=== PATIENT | female | born 1955 | race Caucasian/White ===

== ENCOUNTER 2022-05-10 20:10 | Inpatient (IN) | payer MEDICARE, SELFPAY ==
--- NOTE | ~2022-05-10 | XR_ITS ---
EXAM: XR hand RT min 3V DATE: 05/10/2022 21:08 HISTORY: Cat bite. Pain and swelling to dorsal right hand . COMPARISON: None available. FINDINGS: Normal mineralization. No fracture or dislocation. No lytic or blastic lesion. Polyarticul ar erosive osteoarthritis. No erosion or periosteal change. Soft tissue swelling of the hand. No radi opaque foreign body. IMPRESSION: No acute osseous finding in the right hand. Reviewed, dictated and finalized at location [facility]
[2022-05-10 20:12] VITALS: BP 136/82; PULSE 102; RESP 20; TEMP 37.4; O2SAT 98
[2022-05-10 20:32] LABS: Basophils Percent Auto 0.1 % (0.2-1.2); Eosinophils Absolute Auto 0.1 K/mm3 (0-0.3); Eosinophils Percent Auto 1.6 % (0-4.4); Hematocrit 40.2 % (37.0-47.0); Hemoglobin 13.6 g/dL (12.0-15.0); Immature Granulocyte Absolute 0.01 K/mm3 (0.00-0.031); Immature Granulocyte Percent A 0.1 % (0-0.5); Lymphocytes Percent Auto 11.8 % (18.3-44.2); Mean Corpuscular HGB Conc 33.8 g/dl (32-36); Mean Corpuscular Hemoglobin 30.1 pg (26-34); Mean Corpuscular Volume 88.9 fl (80-100); Mean Platelet Volume 9.8 fl (7.4-10.4); Monocytes Absolute Auto 0.6 K/mm3 (0.1-0.6); Monocytes Percent Auto 8.1 % (2.6-8.5); Neutrophils Absolute Auto 5.3 K/mm3 (1.3-6.7); Neutrophils Percent Auto 78.3 % (45.5-73.1); Platelet Count Result 178 k/mm3 (150-375); Red Blood Count 4.52 M/mm3 (4.2-5.4); Red Cell Distribution Width 14.4 % (11.5-14.5); White Blood Count 6.8 K/mm3 (4.5-10.0)
[2022-05-10 20:42] LABS: Alanine Aminotransferase 22 U/L (6-35); Albumin Level 4.4 g/dL (3.5-5.1); Alkaline Phosphatase 78 U/L (38-126); Anion Gap 6 mmol/L (8-16); Aspartate Amino Transferase 26 U/L (14-36); Bilirubin,Total 0.5 mg/dL (0.2-1.3); Blood Urea Nitrogen 15 mg/dL (7-17); Calcium 8.8 mg/dL (8.4-10.2); Carbon Dioxide 28 mmol/L (22-30); Chloride 104 mmol/L (98-107); Estimated CRCL calculation 76 ml/min; Estimated Glomerular Filt Rate > 60; Glucose 129 mg/dL (65-110); Potassium 4.1 mmol/L (3.4-5.0); Sodium 138 mmol/L (137-145)
[2022-05-10 22:29] LABS: CRP 3.5 mg/dL (<1.0)
--- NOTE | 2022-05-10 22:35 | ED.ANIMALBIT ---
HPI - Animal Bite General Chief Complaint: Animal Bite <ROGERS Dooley Last Filed: 05/10/22 23:59> Stated Complaint: hand swelling, cat bite <ROGERS Dooley Last Filed: 05/10/22 23:59> Time Seen by Provider: 05/10/22 21:45 <ROGERS Dooley Last Filed: 05/10/22 23:59> Source: patient <ROGERS Dooley Last Filed: 05/10/22 23:59> Mode of arrival: ambulatory <ROGERS Dooley Last Filed: 05/10/22 23:59> Limitations: no limitations <ROGERS Dooley Last Filed: 05/10/22 23:59> History of Present Illness HPI narrative: Patient is a 67-year-old female who presents the ED with report of a cat bite to her right hand. Patient reports she was bit by a friend's cat while trying to cage it yesterday morning. She sustained several puncture wounds to the dorsum of her right hand, no significant wounds to her fingers. The cat was not up to date on vaccines, but was not showing any signs of abnormal behavior. She states it just became scared when they were trying to cage it. She was seen in urgent care yesterday afternoon and had her tetanus status updated, started on Augmentin and mupirocin. Patient has had 3 doses of the Augmentin so far. She reports today she developed worsening swelling, redness, warmth to the dorsum of her right hand, beginning to extend down her right forearm. She denies any fever, nausea, vomiting, purulent drainage. Patient does not want the rabies vaccine. <ROGERS Dooley Last Filed: 05/10/22 23:59> Related Data Home Medications: Home Medications Medication Instructions Recorded Confirmed No Home Medications 05/11/22 05/11/22 <ROGERS Dooley Last Filed: 05/10/22 23:59> Allergies/Adverse Reactions: Allergies Allergy/AdvReac Type Severity Reaction Status Date / Time No Known Allergies Allergy Unverified 06/20/18 08:29 <Sunshine Sumner PA-C - Last Filed: 05/10/22 23:59> Review of Systems Review of Systems: CONSTITUTIONAL: Denies fever, chills, or sweats. CARDIOVASCULAR: Denies chest pain. RESPIRATORY: Denies dyspnea. GASTROINTESTINAL: Denies abdominal pain, nausea, vomiting. SKIN: See HPI. MUSCULOSKELETAL: See HPI. NEUROLOGIC: Denies tingling, numbness, or weakness. <Sunshine Sumner PA-C - Last Filed: 05/10/22 23:59> All systems reviewed & are unremarkable except as noted in HPI and below <Sunshine Sumner PA-C - Last Filed: 05/10/22 23:59> PMFSH Past Medical History Medical History: Medical History (Updated 05/10/22 @ 22:43 by Sunshine Sumner PA-C) No pertinent past medical history <Sunshine Sumner PA-C - Last Filed: 05/10/22 23:59> Surgical History Surgical History: Surgical History (Updated 05/10/22 @ 22:38 by Sunshine Sumner PA-C) No pertinent past surgical history <Sunshine Sumner PA-C - Last Filed: 05/10/22 23:59> Social History Social History: Social History (Updated 05/10/22 @ 22:38 by Sunshine Sumner PA-C) Smoking status: Never smoker Second hand tobacco smoke exposure: No Alcohol intake: never Substance use: never Substance use type: does not use Lack of Transportation: No Lack of Food: Never True Current Housing: I Have Housing Concerned About Future Housing: No Difficulty Paying Gas/Electric Bills: No Difficulty Paying for Meds: No Currently Unemployed: No Education: Trade/Vocational Certificate Difficulty w/ Childcare or Family Care: No Spiritual care concerns: No <Sunshine Sumner PA-C - Last Filed: 05/10/22 23:59> Exam Narrative: GENERAL: Well appearing, well-nourished, non-toxic, in no acute distress. HEAD: Normocephalic, atraumatic. NECK: Supple. No adenopathy, no masses. RESPIRATORY: Airway patent, respirations nonlabored. Clear to auscultation bilaterally, no rales, rhonchi, wheezing. CARDIOVASCULAR: Reg
[2022-05-10 22:45] LABS: Erythrocyte Sedimentation Rate 13 mm/hr (0-20)
[2022-05-10] MEDS: AMPICILLIN SULB 3 GM/NS 100 ML 3 GM/100 ML VIAL IVPB (23:07)
[2022-05-10 23:23] LABS: Lactic Acid Reflex 0.7 mmol/L (0.7-2.0)
--- NOTE | 2022-05-10 23:29 | PM.IMHP ---
H&P: HPI History of Present Illness Date/Time: 05/10/22 23:29 Chief Complaint: 67 years old female presented to the hospital with right hand swelling started after cat bite yesterday patient was trying to cage her friend Cat when the cat bit her patient start having pain and swelling of the right hand worsening she went to Urgent Care received tetanus shot patient was discharged on antibiotics Augmentin patient continued to have worsening pain and swelling of the right hand came to the ER today has tachycardia 102 patient will be admitted to the hospital for further evaluation and treatment of cellulitis Review of Systems Review of Systems: 12 system review was negative except above PMFSH Past Medical History Medical History (Updated 05/10/22 @ 22:43 by Sunshine Sumner PA-C) No pertinent past medical history Surgical History Surgical History (Updated 05/10/22 @ 22:38 by Sunshine Sumner PA-C) No pertinent past surgical history Social History Social History (Updated 05/10/22 @ 22:38 by Sunshine Sumner PA-C) Smoking status: Never smoker Meds Home Medications and Allergies Allergies Allergy/AdvReac Type Severity Reaction Status Date / Time No Known Allergies Allergy Unverified 06/20/18 08:29 Vital Signs Vital Signs - 24 hr 05/10/22 20:12 Temperature 99.3 F Pulse Rate 102 H Respiratory Rate 20 Blood Pressure 136/82 Pulse Oximetry 98 Oxygen Delivery Room Air Exam Narrative: GENERAL: Well appearing, well-nourished, non-toxic, in no acute distress. HEAD: Normocephalic, atraumatic. NECK: Supple. No adenopathy, no masses. RESPIRATORY: Airway patent, respirations nonlabored. Clear to auscultation bilaterally, no rales, rhonchi, wheezing. CARDIOVASCULAR: Regular rate and rhythm without murmurs, rubs, or gallops. Peripheral pulses 2+ and equal bilaterally. ABDOMINAL: Soft, nontender, nondistended, no hepatosplenomegaly. Normoactive BS. MUSCULOSKELETAL: Moves all extremities. Strength/ROM intact without gross deformities or TTP. No edema. No calf tenderness. No chest wall tenderness palpation. SKIN: Right hand positive swelling and redness no evidence of abscess. NEURO: A&O X3. Speech clear. Cranial nerves II-XII grossly intact. Steady gait. No ataxic movements. PSYCHIATRIC: Appropriate mood and affect. Normal interaction. H&P: Results Labs Labs: Short CBC 05/10/22 Range/Units 20:25 WBC 6.8 (4.5-10.0) K/mm3 Hgb 13.6 (12.0-15.0) g/dL Hct 40.2 (37.0-47.0) % Plt Count 178 (150-375) k/mm3 BMP 05/10/22 20:25 Sodium 138 Potassium 4.1 Chloride 104 Carbon Dioxide 28 BUN 15 Creatinine 0.50 L Glucose 129 H Calcium 8.8 Liver Function 05/10/22 Range/Units 20:25 Total Bilirubin 0.5 (0.2-1.3) mg/dL AST 26 (14-36) U/L ALT 22 (6-35) U/L Alkaline Phosphatase 78 (38-126) U/L Albumin 4.4 (3.5-5.1) g/dL Assessment and Plan Assessment and plan (1) Cat bite of right hand with infection: Qualifiers: Encounter type: initial encounter Qualified Code(s): S61.451A - Open bite of right hand, initial encounter; L08.9 - Local infection of the skin and subcutaneous tissue, unspecified; W55.01XA - Bitten by cat, initial encounter Code(s): S61.451A - Open bite of right hand, initial encounter; L08.9 - Local infection of the skin and subcutaneous tissue, unspecified; W55.01XA - Bitten by cat, initial encounter Status: Acute Assessment and Plan: Failed outpatient therapy Will give IV Unasyn Follow culture results Added doxycycline Keep arm elevated Pain control
[2022-05-10 23:50] LABS: Influenza A QL RT-PCR Negative (Negative); Influenza B QL RT-PCR Negative (Negative); SARS-CoV-2 RNA PCR Negative
[2022-05-10] MEDS: DOXYCYCLINE 100 MG/NS 100 ML 100 MG/100 ML BAG IVPB (23:56)
[2022-05-11 00:04] VITALS: BP 130/69; PULSE 90; RESP 18; TEMP 36.9; O2SAT 99
[2022-05-11 00:52] VITALS: BMI 28.2
[2022-05-11 01:00] VITALS: BP 163/85; PULSE 88; RESP 16; TEMP 36.6; O2SAT 98
--- NOTE | 2022-05-11 02:51 | ADMGEN ---
This patient, Madelyn Campo, was admitted to 3 [facility] Surg Room 327-01. Patient/family oriented to hospital policies and general routines including ID bracelet, bed and alarms, visiting hours, pain management, procedures, bathroom and other care routines, personal items, smoking policy, room service/diet, and visiting hours. Information on how to activate the Rapid Response Team has been discussed. Patient/Family are encouraged to report perceived risks to care and to ask questions if they do not understand what they are told or what they should do.
[2022-05-11] MEDS: AMPICILLIN SULB 3 GM/NS 100 ML 3 GM/100 ML VIAL IVPB ×3 (05:19→18:17)
[2022-05-11 06:00] VITALS: BP 111/47; PULSE 78; RESP 16; TEMP 36.4; O2SAT 100
[2022-05-11 06:43] LABS: Basophils Percent Auto 0.7 % (0.2-1.2); Eosinophils Absolute Auto 0.2 K/mm3 (0-0.3); Eosinophils Percent Auto 5.3 % (0-4.4); Hematocrit 37.5 % (37.0-47.0); Hemoglobin 12.5 g/dL (12.0-15.0); Immature Granulocyte Absolute 0.02 K/mm3 (0.00-0.031); Immature Granulocyte Percent A 0.5 % (0-0.5); Lymphocytes Absolute Auto 0.85 K/mm3 (0.9-3.2); Lymphocytes Percent Auto 19.5 % (18.3-44.2); Mean Corpuscular HGB Conc 33.3 g/dl (32-36); Mean Corpuscular Hemoglobin 29.6 pg (26-34); Mean Corpuscular Volume 88.7 fl (80-100); Mean Platelet Volume 9.9 fl (7.4-10.4); Monocytes Absolute Auto 0.5 K/mm3 (0.1-0.6); Monocytes Percent Auto 10.5 % (2.6-8.5); Neutrophils Absolute Auto 2.8 K/mm3 (1.3-6.7); Neutrophils Percent Auto 63.5 % (45.5-73.1); Platelet Count Result 169 k/mm3 (150-375); Red Blood Count 4.23 M/mm3 (4.2-5.4); Red Cell Distribution Width 14.4 % (11.5-14.5); White Blood Count 4.4 K/mm3 (4.5-10.0)
[2022-05-11 06:58] LABS: Alanine Aminotransferase 19 U/L (6-35); Albumin Level 3.8 g/dL (3.5-5.1); Alkaline Phosphatase 73 U/L (38-126); Anion Gap 5 mmol/L (8-16); Aspartate Amino Transferase 21 U/L (14-36); Bilirubin,Total 0.7 mg/dL (0.2-1.3); Blood Urea Nitrogen 12 mg/dL (7-17); Calcium 8.4 mg/dL (8.4-10.2); Carbon Dioxide 27 mmol/L (22-30); Chloride 104 mmol/L (98-107); Estimated CRCL calculation 88 ml/min; Estimated Glomerular Filt Rate > 60; Glucose 103 mg/dL (65-110); Sodium 136 mmol/L (137-145)
[2022-05-11] MEDS: FAMOTIDINE 20 MG TABLET PO ×2 (08:12→20:54)
[2022-05-11] MEDS: ENOXAPARIN 40 MG/0.4 ML SYRINGE SUB-Q (08:15)
--- NOTE | 2022-05-11 08:40 | PM.IMPN ---
Progress Note: A&P Assessment and Plan (1) Cat bite of right hand with infection: Qualifiers: Encounter type: initial encounter Qualified Code(s): S61.451A - Open bite of right hand, initial encounter; L08.9 - Local infection of the skin and subcutaneous tissue, unspecified; W55.01XA - Bitten by cat, initial encounter Code(s): S61.451A - Open bite of right hand, initial encounter; L08.9 - Local infection of the skin and subcutaneous tissue, unspecified; W55.01XA - Bitten by cat, initial encounter Status: Acute Assessment and Plan: Patient failed outpatient Augmentin therapy, appreciate Plastic surgery consultation Continue IV antibiotics, elevate, pain controlled Plan DVT prophylaxis with Lovenox GI prophylaxis with Pepcid Code status full code Subjective Date/time seen: 05/11/22 08:40 Interval history: No overnight events noted. No chest pain or shortness of breath. No nausea, vomiting or diarrhea. No fevers or chills. Patient states her right hand appears to be about the same as yesterday. Swelling remains, not improved. She is unable to bend her right index finger. Sensation appears to be intact. Review of Systems Review of Systems: 12 point review of systems was assessed and was negative except as noted in the HPI Exam Narrative: General: No acute distress, alert and oriented per baseline HEENT: Atraumatic, normocephalic, mucous membranes moist CV: Regular rate and rhythm, S1, S2 Lungs: Clear to auscultation bilaterally, no rales or crackles noted, no wheezes, good air entry Abdomen: Soft, nontender, nondistended Extremities: Right hand with significant subcutaneous swelling noted, diffuse erythema over the dorsal surface of the hand extending up into the right index finger, reduced ability to flex right index finger, sensation to light touch intact throughout Psych: Euthymic, normal affect Objective Data Vital Signs Vital Signs: Vital Signs - 24 hr 05/10/22 20:12 05/11/22 00:04 05/11/22 01:00 Temperature 99.3 F 98.5 F 98 F Pulse Rate 102 H 90 88 Respiratory Rate 20 18 16 Blood Pressure 136/82 130/69 163/85 H Pulse Oximetry 98 99 98 Oxygen Delivery Room Air 05/11/22 06:00 Temperature 97.5 F L Pulse Rate 78 Respiratory Rate 16 Blood Pressure 111/47 L Pulse Oximetry 100 Oxygen Delivery Intake/Output Intake/Output: Intake & Output 05/08/22 05/09/22 05/10/22 05/11/22 23:59 23:59 23:59 23:59 Intake Total 400 Balance 400 Meds/Results Medications: Active Medications Generic Name Dose Route Start Last Admin Trade Name Freq PRN Reason Stop Dose Admin Acetaminophen 650 mg 05/10/22 23:28 Acetaminophen 325 Mg Tablet PO Q6H PRN Mild Pain (1-3) Hydrocodone Bitart/Acetaminophen 1 tab 05/10/22 23:28 Hydrocodone/Acetaminophen (*Crx) 5-325 Mg Tablet PO Q6H PRN Pain Rated 4-6 Enoxaparin Sodium 40 mg 05/11/22 09:00 05/11/22 08:15 Enoxaparin 40 Mg/0.4 Ml Syringe SUB-Q 40 mg DAILY FLORES Administration Famotidine 20 mg 05/11/22 09:00 05/11/22 08:12 Famotidine 20 Mg Tablet PO 20 mg Q12HR FLORES Administration Ampicillin Sodium/Sulbactam Sodium 3 gm in 100 mls @ 200 mls/hr 05/11/22 05:00 05/11/22 08:04 Unasyn 3 Gm/Ns 100 Ml IVPB Infused Q6H FLORES Infusion Doxycycline Hyclate 100 mg in 100 mls @ 100 mls/hr 05/10/22 23:30 05/11/22 08:03 Vibramycin 100 Mg/Ns 100 Ml IVPB Infused Q12HR FLORES Infusion Melatonin 3 mg 05/10/22 23:28 Melatonin 3 Mg Tablet PO HS PRN INSOMINA Morphine Sulfate 2 mg 05/10/22 23:28 Morphine Sulfate (*Crx) 2 Mg/Ml Inj IV PUSH Q4H PRN For pain 7-10 Radiology Results: ITS Impressions Hand X-Ray 05/10/22 21:15 IMPRESSION: No acute osseous finding in the right hand. Labs Labs: Laboratory Results - last 24 hr 05/10/22 05/10/22 05/10/22 20:25 20:25 20:25 WBC 6.8 RBC 4.52 Hgb 13.
[2022-05-11] MEDS: DOXYCYCLINE 100 MG/NS 100 ML 100 MG/100 ML BAG IVPB ×2 (12:41→20:55)
[2022-05-11 14:00] VITALS: BP 139/84; PULSE 84; RESP 20; TEMP 36.6; O2SAT 97
--- NOTE | 2022-05-11 17:48 | WPDCN ---
Assessment and Plan Assessment and plan (1) Cat bite of right hand with infection: Qualifiers: Encounter type: initial encounter Qualified Code(s): S61.451A - Open bite of right hand, initial encounter; L08.9 - Local infection of the skin and subcutaneous tissue, unspecified; W55.01XA - Bitten by cat, initial encounter Code(s): S61.451A - Open bite of right hand, initial encounter; L08.9 - Local infection of the skin and subcutaneous tissue, unspecified; W55.01XA - Bitten by cat, initial encounter Status: Acute Assessment and Plan: Cat bite to the right hand without evidence of tenosynovitis or septic joint. Cellulitis of the right hand responding to IV antibiotics Plan NPO tonight. Reexamine tomorrow. Continue current IV antibiotics. Elevate the extremity. HPI Data of Consult Date/Time: 05/11/22 17:48 Requesting Physician: Cain Estevez MD Primary Care Provider: PHYSICIAN NOT ON STAFF Consult Narrative Reason for consult: Cat bite to the right hand Narrative: Madelyn Campo is a 67 year old female who sustained a cat bite to the area of the right 2nd metacarpal phalangeal joint on May. She was helping a friend cage a cat. Apparently the cat's vaccinations are not up-to-date. The bite appears to have occurred once, involving five or 6 different puncture sites, only 1 of which is on the palm. The patient presented the next day with swelling, pain and redness in the area. At the time she was admitted, on the , there was erythema marked on the dorsal aspect of the distal 3rd of the forearm. She was started on IV Vibramycin and Unasyn. She was provided a tetanus toxoid injection. She was admitted. An x-ray showed no foreign material. The white count on admission was 6.8, there was mild neutrophilia, the sed rate was normal at 13, The C-reactive protein was 3.5. Today's labs show a white count reduced to 4.4, the neutrophilia is corrected, the glucose is 103. The patient feels better except for some stiffness and soreness in the 2nd metacarpophalangeal joint area. She does not have chills. Blood culture pending. [facility] Past Medical History Medical History No pertinent past medical history Surgical History Surgical History No pertinent past surgical history Social History Social History Smoking status: Never smoker Second hand tobacco smoke exposure: No Alcohol intake: never Substance use: never Substance use type: does not use Lack of Transportation: No Lack of Food: Never True Current Housing: I Have Housing Concerned About Future Housing: No Difficulty Paying Gas/Electric Bills: No Difficulty Paying for Meds: No Currently Unemployed: No Education: Trade/Vocational Certificate Difficulty w/ Childcare or Family Care: No Spiritual care concerns: No Meds Home Medications and Allergies Home Medications Medication Instructions Recorded Confirmed Type No Home Medications 05/11/22 05/11/22 History Allergies Allergy/AdvReac Type Severity Reaction Status Date / Time No Known Allergies Allergy Unverified 06/20/18 08:29 Vital Signs Vital Signs - 24 hr 05/10/22 20:12 05/11/22 00:04 05/11/22 01:00 Temperature 99.3 F 98.5 F 98 F Pulse Rate 102 H 90 88 Respiratory Rate 20 18 16 Blood Pressure 136/82 130/69 163/85 H Pulse Oximetry 98 99 98 Oxygen Delivery Room Air 05/11/22 06:00 05/11/22 14:00 05/11/22 08:09 Temperature 97.5 F L 97.8 F Pulse Rate 78 84 Respiratory Rate 16 20 Blood Pressure 111/47 L 139/84 Pulse Oximetry 100 97 Oxygen Delivery Room Air Exam Const: General: cooperative, healthy appearing, comfortable and no acute distress Orientation/consciousness: patient oriented x3 HENMT: Head: normal t
[2022-05-11 22:00] VITALS: BP 132/82; PULSE 85; RESP 16; TEMP 36.7; O2SAT 97
[2022-05-12] MEDS: AMPICILLIN SULB 3 GM/NS 100 ML 3 GM/100 ML VIAL IVPB ×3 (00:45→13:35)
[2022-05-12 06:00] VITALS: BP 104/55; PULSE 76; RESP 16; TEMP 36.2; O2SAT 99
[2022-05-12 07:29] LABS: Basophils Percent Auto 0.6 % (0.2-1.2); Eosinophils Absolute Auto 0.2 K/mm3 (0-0.3); Eosinophils Percent Auto 6.7 % (0-4.4); Hematocrit 38.4 % (37.0-47.0); Hemoglobin 12.7 g/dL (12.0-15.0); Immature Granulocyte Absolute 0.01 K/mm3 (0.00-0.031); Immature Granulocyte Percent A 0.3 % (0-0.5); Lymphocytes Absolute Auto 0.91 K/mm3 (0.9-3.2); Lymphocytes Percent Auto 26.7 % (18.3-44.2); Mean Corpuscular HGB Conc 33.1 g/dl (32-36); Mean Corpuscular Hemoglobin 29.3 pg (26-34); Mean Corpuscular Volume 88.5 fl (80-100); Mean Platelet Volume 9.9 fl (7.4-10.4); Monocytes Absolute Auto 0.4 K/mm3 (0.1-0.6); Monocytes Percent Auto 12.9 % (2.6-8.5); Neutrophils Absolute Auto 1.8 K/mm3 (1.3-6.7); Neutrophils Percent Auto 52.8 % (45.5-73.1); Platelet Count Result 171 k/mm3 (150-375); Red Blood Count 4.34 M/mm3 (4.2-5.4); Red Cell Distribution Width 14.1 % (11.5-14.5); White Blood Count 3.4 K/mm3 (4.5-10.0)
[2022-05-12 07:45] LABS: Alanine Aminotransferase 18 U/L (6-35); Albumin Level 3.6 g/dL (3.5-5.1); Alkaline Phosphatase 68 U/L (38-126); Anion Gap 3 mmol/L (8-16); Aspartate Amino Transferase 22 U/L (14-36); Bilirubin,Total 0.6 mg/dL (0.2-1.3); Blood Urea Nitrogen 14 mg/dL (7-17); Calcium 8.1 mg/dL (8.4-10.2); Carbon Dioxide 28 mmol/L (22-30); Chloride 109 mmol/L (98-107); Estimated CRCL calculation 74 ml/min; Estimated Glomerular Filt Rate > 60; Glucose 97 mg/dL (65-110); Potassium 4.4 mmol/L (3.4-5.0); Sodium 140 mmol/L (137-145)
[2022-05-12] MEDS: DOXYCYCLINE 100 MG/NS 100 ML 100 MG/100 ML BAG IVPB (08:23)
[2022-05-12] MEDS: ENOXAPARIN 40 MG/0.4 ML SYRINGE SUB-Q (08:24)
[2022-05-12] MEDS: FAMOTIDINE 20 MG TABLET PO (08:24)
--- NOTE | 2022-05-12 10:42 | WPDPN ---
Progress Note: A&P Assessment and Plan (1) Cat bite of right hand with infection: Qualifiers: Encounter type: initial encounter Qualified Code(s): S61.451A - Open bite of right hand, initial encounter; L08.9 - Local infection of the skin and subcutaneous tissue, unspecified; W55.01XA - Bitten by cat, initial encounter Code(s): S61.451A - Open bite of right hand, initial encounter; L08.9 - Local infection of the skin and subcutaneous tissue, unspecified; W55.01XA - Bitten by cat, initial encounter Status: Acute Assessment and Plan: Markedly improved by antibiotic treatment. OK for discharge home on oral antibiotics. Suggest Augmentin for 10 days. No bandage . Activity as tolerated. F/U with Dr Robles next Mon or Mon. Time Spent With Patient Time with patient: less than 15 minutes Subjective Date/time seen: 05/12/22 10:42 Interval history: Feels and looks better. Exam Narrative: WBC below 10. No erythema. No drainage. Reduced edema. Good ROM, still somewhat limited at the 2nd MPJ by swelling, not by joint space pain. Objective Data Vital Signs Vital Signs: Vital Signs - 24 hr 05/11/22 14:00 05/11/22 22:00 05/11/22 20:00 Temperature 97.8 F 98.1 F Pulse Rate 84 85 Respiratory Rate 20 16 Blood Pressure 139/84 132/82 Pulse Oximetry 97 97 Oxygen Delivery Room Air 05/12/22 06:00 Temperature 97.1 F L Pulse Rate 76 Respiratory Rate 16 Blood Pressure 104/55 L Pulse Oximetry 99 Oxygen Delivery Intake/Output Intake/Output: Intake & Output 05/09/22 05/10/22 05/11/22 05/12/22 23:59 23:59 23:59 23:59 Intake Total 1158 500 Balance 1158 500 Meds/Results Medications: Active Medications Generic Name Dose Route Start Last Admin Trade Name Freq PRN Reason Stop Dose Admin Acetaminophen 650 mg 05/10/22 23:28 Acetaminophen 325 Mg Tablet PO Q6H PRN Mild Pain (1-3) Hydrocodone Bitart/Acetaminophen 1 tab 05/10/22 23:28 Hydrocodone/Acetaminophen (*Crx) 5-325 Mg Tablet PO Q6H PRN Pain Rated 4-6 Enoxaparin Sodium 40 mg 05/11/22 09:00 05/12/22 08:24 Enoxaparin 40 Mg/0.4 Ml Syringe SUB-Q 40 mg DAILY FLORES Administration Famotidine 20 mg 05/11/22 09:00 05/12/22 08:24 Famotidine 20 Mg Tablet PO 20 mg Q12HR FLORES Administration Ampicillin Sodium/Sulbactam Sodium 3 gm in 100 mls @ 200 mls/hr 05/11/22 05:00 05/12/22 04:05 Unasyn 3 Gm/Ns 100 Ml IVPB 100 mls/hr Q6H FLORES Administration Doxycycline Hyclate 100 mg in 100 mls @ 100 mls/hr 05/10/22 23:30 05/12/22 09:23 Vibramycin 100 Mg/Ns 100 Ml IVPB Infused Q12HR FLORES Infusion Melatonin 3 mg 05/10/22 23:28 Melatonin 3 Mg Tablet PO HS PRN INSOMINA Morphine Sulfate 2 mg 05/10/22 23:28 Morphine Sulfate (*Crx) 2 Mg/Ml Inj IV PUSH Q4H PRN For pain 7-10 Radiology Results: ITS Impressions Hand X-Ray 05/10/22 21:15 IMPRESSION: No acute osseous finding in the right hand. Labs Labs: Laboratory Results - last 24 hr 05/12/22 05/12/22 07:03 07:03 WBC 3.4 L RBC 4.34 Hgb 12.7 Hct 38.4 MCV 88.5 MCH 29.3 MCHC 33.1 RDW 14.1 Plt Count 171 MPV 9.9 Immature Gran % (Auto) 0.3 Neut % (Auto) 52.8 Lymph % (Auto) 26.7 Holmes % (Auto) 12.9 H Eos % (Auto) 6.7 H Baso % (Auto) 0.6 Lymph # (Auto) 0.91 Holmes # (Auto) 0.4 Eos # (Auto) 0.2 Baso # (Auto) 0.0 Abs Immat Gran (auto) 0.01 Absolute Neuts (auto) 1.8 Absolute Nucleated RBC 0.0 Nucleated RBC % 0.0 Sodium 140 Potassium 4.4 Chloride 109 H Carbon Dioxide 28 Anion Gap 3 L BUN 14 Creatinine 0.60 L Estim Creat Clear Calc 74 Estimated GFR > 60 Glucose 97 Calcium 8.1 L Total Bilirubin 0.6 AST 22 ALT 18 Alkaline Phosphatase 68 Total Protein 6.0 L Albumin 3.6
--- NOTE | 2022-05-12 13:29 | PM.DS ---
DS: Admitting Diagnosis Discharge Date 05/12/22 Admitting Diagnosis cat bite DS: Discharge Diagnosis Discharge Diagnosis (1) Cat bite of right hand with infection: Qualifiers: Encounter type: initial encounter Qualified Code(s): S61.451A - Open bite of right hand, initial encounter; L08.9 - Local infection of the skin and subcutaneous tissue, unspecified; W55.01XA - Bitten by cat, initial encounter Code(s): S61.451A - Open bite of right hand, initial encounter; L08.9 - Local infection of the skin and subcutaneous tissue, unspecified; W55.01XA - Bitten by cat, initial encounter Status: Acute Assessment and Plan: Patient failed outpatient Augmentin therapy, appreciate Plastic surgery consultation Continue IV antibiotics, elevate, pain controlled Plan DVT prophylaxis with Lovenox GI prophylaxis with Pepcid Code status full code DS: Summary Hospital Course Hospital Course: 67-year-old female presented with a cat bite and right hand swelling. She was admitted with IV antibiotics, tetanus shot and Plastic surgery consultation. Symptoms improved, no evidence of tenosynovitis or septic joint per surgery. Therefore, she was discharged on oral antibiotics and close outpatient follow-up. Time Spent with Patient Time attestation: Total time spent providing and/or coordinating discharge services: Exam Narrative: General: No acute distress, alert and oriented per baseline HEENT: Atraumatic, normocephalic, mucous membranes moist CV: Regular rate and rhythm, S1, S2 Lungs: Clear to auscultation bilaterally, no rales or crackles noted, no wheezes, good air entry Abdomen: Soft, nontender, nondistended Extremities: Right hand with significant subcutaneous swelling noted, diffuse erythema over the dorsal surface of the hand extending up into the right index finger, reduced ability to flex right index finger, sensation to light touch intact throughout Psych: Euthymic, normal affect DS: Data Data Completed and Pending Labs on day of discharge: Labs from last 24 hours 05/12/22 05/12/22 07:03 07:03 WBC 3.4 L RBC 4.34 Hgb 12.7 Hct 38.4 MCV 88.5 MCH 29.3 MCHC 33.1 RDW 14.1 Plt Count 171 MPV 9.9 Immature Gran % (Auto) 0.3 Neut % (Auto) 52.8 Lymph % (Auto) 26.7 Rincon % (Auto) 12.9 H Eos % (Auto) 6.7 H Baso % (Auto) 0.6 Lymph # (Auto) 0.91 Rincon # (Auto) 0.4 Eos # (Auto) 0.2 Baso # (Auto) 0.0 Abs Immat Gran (auto) 0.01 Absolute Neuts (auto) 1.8 Absolute Nucleated RBC 0.0 Nucleated RBC % 0.0 Sodium 140 Potassium 4.4 Chloride 109 H Carbon Dioxide 28 Anion Gap 3 L BUN 14 Creatinine 0.60 L Estim Creat Clear Calc 74 Estimated GFR > 60 Glucose 97 Calcium 8.1 L Total Bilirubin 0.6 AST 22 ALT 18 Alkaline Phosphatase 68 Total Protein 6.0 L Albumin 3.6 Preliminary micro results at discharge 05/10/22 23:05 Blood Culture - Preliminary Blood 05/10/22 23:05 Blood Culture - Preliminary Blood Discharge Plan Discharge Attending physician on discharge: Abbi Lutz Consulting providers: Sunshine Sumner ; Brett Robles Discharging Clinician: Abbi Lutz Patient Disposition: Home, Self-Care Activity: as tolerated Diet: as tolerated Patient Instructions: Antibiotic Form, Animal Bite (DC) Stand Alone Forms: General Discharge Information Follow-up/Referrals: rBett Robles MD [Physician] - PHYSICIAN NOT ON STAFF,NONSTAFF [Primary Care Provider] - Discharge Medications: New amoxicillin-pot clavulanate 875-125 mg tablet 1 tablet PO Q12H 7 Days Qty: 14 0RF doxycycline hyclate 100 mg capsule 100 mg PO BID 7 Days Qty: 14 0RF Date of admission: 05/11/22 16:56 Primary Care Provider: PHYSICIAN NOT ON STAFF,NONSTAFF Admitting Provider: Cain Estevez M.A. Attending physician on admission: Cain Estevez M.A. Condition:
[2022-05-12 14:00] VITALS: BP 130/68; PULSE 84; RESP 19; TEMP 36.4; O2SAT 97
== END 2022-05-12 18:15 | disposition home or self-care (01) | DRG 603 ==
LOC: ANHED 23:59 → ANH3MEDSUR 05-11 00:19
PROVIDERS: Emergency Medicine; Admitting Provider Internal Medicine; Emergency Provider Physician Assistant; Visit Provider Student in an Organized Health Care Education/Training Program
DX: L03.113 Cellulitis of right upper limb (principal); S61.451A Open bite of right hand, initial encounter; W55.01XA Bitten by cat, initial encounter; Z20.822 Contact with and (suspected) exposure to COVID-19
CPT/HCPCS: 36415; 73130; 80053; 83605; 85025; 85652; 86140; 87040; 87636; 96365; 96366; 96367; 99285; A9270; G0378; J0295; J1650

== ENCOUNTER 2023-03-20 13:04 | Outpatient (CLI) | payer MEDICARE, SELFPAY ==
--- NOTE | ~2023-03-20 | DEXA_ITS ---
Bone Density Report Name: ANGELO CHURCH Age: 68 Sex: Female Ethnicity: White Date of : 1955 Indication: postmenopausal; screening for osteoporosis; height loss; Referring Provider: LYUDMILA, SUMAN Anderson Study: Bone densitometry was performed. Exam Date: March 20, 2023 Accession number: [id number] Bone Density: Region BMD T-score Z-score Classification AP Spine(L1-L4) 0.688 -3.3 -1.1 Osteoporosis Femoral Neck (Left) 0.703 -1.3 0.5 Osteopenia Total Hip (Left) 0.945 0.0 1.5 Normal Femoral Neck (Right) 0.698 -1.4 0.4 Osteopenia Total Hip (Right) 0.929 -0.1 1.4 Normal Femoral Neck Mean 0.700 -1.3 0.5 Osteopenia Total Hip Mean 0.937 0.0 1.5 Normal World Health Organization criteria for BMD impression classify patients as: Normal (T-score at or above -1.0), Osteopenia (T-score between -1.0 and -2.5), or Osteoporosis (T-score at or below -2.5). 10-year Fracture Risk: FRAX not reported because: Some T-score for Spine Total or Hip Total or Femoral Neck at or below -2.5 Clinical Information Provided by Patient: Has used the following medications: Vitamin D, Calcium Patient maximum height was 64 Menopause Age: 51 No regular weight bearing exercise Drinks caffeinated beverages Onset of menses at age 10 Number of children 2 Impression: The patient has osteoporosis, based on the Total Spine T-score. Discussion: INCREASED RISK OF FRACTURE. BONE DENSITY IS UNDESIRABLY LOW AT ONE OR MORE SKELETAL SITES, CONSISTENT WITH POSTMENOPAUSAL OSTEOPOROSIS. This patient's lowest T-score meets the World Health Organization's (WHO) criteria for osteoporosis at one or more sites (T-score -2.5 or below). In untreated patients, the risk of osteoporotic fracture increases approximately two-fold for each 1.0 SD decrease in T-score. Low bone density is not the only risk factor for fracture; also consider factors such as patient's age, frailty or poor health, risk of falling, risk of injury, previous osteoporotic fracture, family history of osteoporosis, cigarette smoking, low body weight, etc. Not everyone with low bone mineral density has osteoporosis; osteomalacia and other metabolic bone disorders should also be considered. Patients who have osteoporosis should be evaluated for specific diseases and conditions (secondary causes) that may cause or contribute to bone loss. The [place] Association of Clinical Endocrinologists (AACE) and National Osteoporosis Foundation (NOF) recommend pharmacologic intervention for all postmenopausal women whose T-score is in this range. The patient should follow a healthful lifestyle (good nutrition with adequate calcium and vitamin D, and appropriate weight-bearing exercise). Follow-Up: Consider a repeat BMD and Vertebral Fracture Assessment (VFA) exam in 2 years or sooner if medically necessary, to reassess this patient's status. Reported b
== END 2023-03-20 13:05 | disposition home or self-care (01) ==
LOC: CHSIMG 13:06
PROVIDERS: PCP Family Medicine; Visit Provider Family Medicine
DX: Z78.0 Asymptomatic menopausal state (principal); M81.0 Age-related osteoporosis without current pathological fracture; M85.89 Other specified disorders of bone density and structure, multiple sites
CPT/HCPCS: 77080

== ENCOUNTER 2024-05-20 14:22 | Outpatient (CLI) | payer MEDICARE, SELFPAY ==
--- NOTE | 2024-05-20 | ECG_ITS ---
Test Date: 2024-05-20 14:54:34 Measurements Intervals [place] Rate: 72 P: 55 [place]: 156 QRS: 35 QRSD: 91 T: 20 QT: 379 QTc: 416 Interpretive Statements SINUS RHYTHM No previous ECG available for comparison Electronically Signed On 05-21-2024 16:39:16 CDT by Gunjan Johnson M.D.
--- OUTSIDE RECORDS SUMMARY | 2024-05-20 17:01 | XMS_ITS | Clinical Summary ---
Author Organization [facility] [address] Address [address] [place] [id number] Care Team Providers Care Application Penetration Tester Name Role Phone Davy Henriquez MD Primary Care Provider [phone] Allergies No known active allergies Medications vitamins A,C,W-ojli-boospd (OCUVITE) 7,160 unit- 113 mg-100 unit tablet Take 1 tablet by mouth daily Active calcium carbonate-vitamin D3 1,500 mg (600mg elemental) -800 unit per tablet Take 1 tablet by mouth daily with breakfast Active RIBOFLAVIN, VITAMIN B2, ORAL Take by mouth Active denosumab (PROLIA) 60 mg/mL syringeIndication s:Age-related osteoporosis without current pathological fracture Inject 1 mL (60 mg total) under the skin once for 1 dose Repeat every 6 months 1 mL 1 4 Active Active Problems Problem Noted Date Diagnosed Date Medicare annual wellness visit, subsequent 02/17 Overweight 10/23/2017 Overview (05/09/2022): Last Assessment & Plan: Exact BMI discussed. Goal of losing 4 pounds in the next year is discussed. Low-carbohydrate diet could be helpful. Continued regular exercise is encouraged. Encounters Date Type Department Care Team Description 03/05/2024 Telephone [facility] Family Medicine at [address] [place] [address] Davy Henriquez MD Medical Records Request 03/04/2024 1:00 PM ONCOLOGY TECHNICIAN Office Visit [facility] Family Medicine at [address] [place] [address] Davy Henriquez MD Medicare annual wellness visit, subsequent (Primary Dx); Age-related osteoporosis without current pathological fracture; Breast cancer screening by mammogram 02/22/2024 11:30 AM ONCOLOGY TECHNICIAN Lab [facility] Outpatient Lab at [address] [address] Medicare annual wellness visit, subsequent (Primary Dx) 02/22/2024 11:24 AM ONCOLOGY TECHNICIAN - 02/22/2024 11:59 PM ONCOLOGY TECHNICIAN Hospital Encounter [place] [phone] Medicare annual wellness visit, subsequent Discharge Disposition: Discharge to home or self care from Last 3 Months Immunizations Immunization Administration Dates Next Due Influenza, Quadrivalent, Hig h Dose, Preservative Free, Intrr 02/17/2022,12/09/2019,12/10/2018 Influenza, Trivalent, High D ose, Split, Preservative Free, Intramuscular 12/10/2018 Influenza, Unspecified 03/04/2024(Deferr ed: Patient Refused),03/04/2024(Deferred: Patient Refused),03/02/2023(Deferred: Patient ill today),01/14/2021 Pneumococcal Conjugate PCV 13 12/10/2018 Pneumococcal Conjugate Pcv20 03/02/2023( Deferred: Patient ill today) Tdap 05/09/2022,10/27/2015 ZOSTER LIVE 06/15/2014,04/06/2014 ZOSTER Recombinant 04/15/2019,01/10/2019 Social History Tobacco Use Types Packs/Day Years Used Date Smoking Tobacco: Never Smokeless Tobacco: Never Tobacco Cessation:Counseling Given: Not Answered PHQ-2 Answer Date Recorded PHQ-2 Total Score (If total score is 3 or more points, staff should administer the PHQ-9) 0 03/04/2024 Comments Unknown Sex and Gender Information Value Date Recorded Sex Assigned at Not on file Legal Sex Female 8:02 PM ONCOLOGY TECHNICIAN Gender Identity Not on file Sexual Orientation Not on file Obstetrics History Last Filed Vital Signs Vital Sign Reading Time Taken Comments Blood Pressure 140/96 03/04/2024 1:58 PM ONCOLOGY TECHNICIAN Pulse 78 03/04/2024 12:59 PM ONCOLOGY TECHNICIAN Temperature 36.4 C (97.6 F) 03/04/2024 12:59 PM ONCOLOGY TECHNICIAN Respiratory Rate 18 03/15/2023 8:50 AM ONCOLOGY TECHNICIAN Oxygen Saturation 98% 03/04/2024 12:59 PM ONCOLOGY TECHNICIAN Inhaled Oxygen Concentration - - Weight 72.2 kg (159 lb 3.2 oz) 03/04/2024 12:59 PM ONCOLOGY TECHNICIAN Height 162.6 cm (5' 4 ) 03/04/2024 12:59 PM ONCOLOGY TECHNICIAN Body Mass Index 27.33 03/04/2024 12:59 PM ONCOLOGY TECHNICIAN Plan of Treatment Health Maintenance Due Date Last Done Comments Colon Cancer Screening-Colonoscopy 1955 Hepatitis C Screening 1955 Hepatitis B Screening 1971 Pneumococcal vaccine 65+ (2 of 2 - PPSV23) 12/11/2019 12/10/2018 Covid-19 Vaccine ( - 2023-2 5 season) 2023 02/20/2021, 06/02/2020, 05/12/2020 Influenza Vaccine (#1) 2023 , 01/14/2021, 12/09/2019, Additional history exists Breast Cancer Screening-Mammogram 03/13/2024 03/13/2023, 03/13/2023, 03/10/2022, Additional history exists Depression Screening 03/04/2025 03/04/2024, 03/02/2023, 02/17/2022, Additional history exists Fall Risk Assessment 03/04/2025 03/04/2024, 03/02/2023, 02/17/2022, Additional history exists Well Visit 65+ 03/04/2025 03/04/2024, 02/04, 02/17/2022, Additional history exists Osteoporosis Screening-Bone Density Scan 03/20/2025 03/20/2023 DTaP/Tdap/Td Vaccine (3 - Td or Tdap) 05/09/2032 05/09/2022, 10/27/2015 Zoster Vaccine Completed 04/15/2019, 11/0 09/2018, 06/15/2014, Additional history exists Procedures Procedure Name Priority Date/Time Associated Diagnosis Comments EGFR Routine 02/22/2024 11:24 AM CST Medicare annual wellness visit, subsequent DIFFERENTIAL AUTO Routine 02/22/2024 11: 24 AM CST Medicare annual wellness visit, subsequent LIPID PANEL Routine 02/22/2024 11:24 AM CST Medicare annual wellness visit, subsequent CBC WITH AUTO DIFFERENTIAL Routine 02/22/2024 11:24 AM CST Medicare annual wellness visit, subsequent COMPREHENSIVE METABOLIC PANEL Routine 02/22/2024 11:24 AM CST Medicare annual wellness visit, subsequent DEXA AXIAL SKELETON BONE DENSITY 1 OR MORE SITES Schedule Routine, Read Routine (OP Routine) 03/20/2023 Post-menopause SCREENING MAMMOGRAM BILATERAL W ABHIJEET Schedule Routine, Read Routine (OP Routine) 03/10/2022 from Last 3 Months or Most Recently Relevant to Health Maintenance Results * eGFR (02/22/2024 11:24 AM ONCOLOGY TECHNICIAN) eGFR >90 >=60 mL/min/1. 73 m2 Comment: Interpretive Data Reference Interval Normal >/= 90 mL/min/1.73m2 Mildly decreased* 60 - 89 mL/min/1.73m2 Mildly to moderately decreased 45 - 59 mL/min/1.73m2 Moderately to severely decreased 30 - 44 mL/min/1.73m2 Severely decreased 15 - 29 mL/min/1.73m2 Kidney Failure < 15 mL/min/1.73m2 *Relative to young adult level Estimated glomerular filtration rate is determined by the 2020 CKD-EPI equation recommended by the National Kidney Foundation (A Unifying Approach to GFR Estimation: Recommendations of the NKF-ASK Task Force on Reassessing the Inclusion of Race in Diagnosing Kidney Disease, JASN 2020). The CKD-EPI equation should not be used for patients with unstable renal function and has not been validated in children and those over 70. Current interpretive data was last reviewed 2021. Blood 02/22/2024 11:2 4 AM ONCOLOGY TECHNICIAN 02/22/2024 10:24 PM ONCOLOGY TECHNICIAN us Davy Henriquez MD LAB BLOOD ORDERABLES Final Re sult [facility] [id number] Department [place] [address] * Differential, auto (02/22/2024 11:24 AM ONCOLOGY TECHNICIAN) Neutrophil abs 1.8 1.5 - 6.5 K/cumm Imm gran abs 0.0 0.0 - 0.1 K/cumm [facility] Lymphocyte abs 0.9 0.8 - 3.3 K/cumm [facility] Monocyte abs 0.3 0.2 - 0.8 K/cumm [facility] Eosinophil abs 0.2 0.0 - 0.5 K/cumm [facility] Basophil abs 0.0 0.0 - 0.1 K/cumm [facility] Neutrophil pct 53.7 % [facility] Comment: Interpretive Data Percent cell count reference ranges are not reported, since discordance with absolute values may lead to misinterpretation of CBC data. Current Interpretive Data was last revised on 2017. Imm gran pct 0.3 % [facility] Comment: Interpretive Data Percent cell count reference ranges are not reported, since discordance with absolute values may lead to misinterpretation of CBC data. Current Interpretive Data was last revised on 2017. Lymphocyte pct 27.7 % [facility] Comment: Interpretive Data Percent cell count reference ranges are not reported, since discordance with absolute values may lead to misinterpretation of CBC data. Current Interpretive Data was last revised on 2017. Monocyte pct 10.2 % [facility] Comment: Interpretive Data Percent cell count reference ranges are not reported, since discordance with absolute values may lead to misinterpretation of CBC data. Current Interpretive Data was last revised on 2017. Eosinophil pct 7.2 % [facility] Comment: Interpretive Data Percent cell count reference ranges are not reported, since discordance with absolute values may lead to misinterpretation of CBC data. Current Interpretive Data was last revised on 2017. Basophil pct 0.9 % [facility] Comment: Interpretive Data Percent cell count reference ranges are not reported, since discordance with absolute values may lead to misinterpretation of CBC data. Current Interpretive Data was last revised on 2017. Blood 02/22/2024 11:2 4 AM ONCOLOGY TECHNICIAN 02/22/2024 10:00 PM ONCOLOGY TECHNICIAN Davy Henriquez MD LAB BLOOD ORDERABLES Final Re sult Performing Organization Address City/[facility] Co de Phone Number [facility] [address] [place] [address] * (ABNORMAL) CBC with auto differential (02/22/2024 11:24 AM ONCOLOGY TECHNICIAN) WBC 3.3(L) 3.8 - 9.9 K/cumm Hgb 13.8 11.9 - 15.5 g/dL [facility] Hct 44.1 35.6 - 45.5 % [facility] Plt 218 150 - 400 K/cumm [facility] MPV 10.7 9.1 - 12.3 fL [facility] RBC 4.74 3.90 - 5.20 M/cumm [facility] MCV 93.0 81.3 - 96.4 fL [facility] MCH 29.1 27.1 - 33.3 pg [facility] MCHC 31.3(L) 32.3 - 35.7 g/dL [facility] RDW CV 14.5 11.1 - 14.9 % [facility] RDW SD 49.9(H) 35.7 - 48.1 fL [facility] NRBC abs 0.00 0.00 - 0.01 K/cumm [facility] Blood 02/22/2024 11:2 4 AM ONCOLOGY TECHNICIAN 02/22/2024 10:00 PM ONCOLOGY TECHNICIAN Davy Henriquez MD LAB BLOOD ORDERABLES Final Re sult Performing Organization Address City/[facility]/ZIP Co de Phone Number [facility] [address] Department of [employer] [place], [place] [id number] * (ABNORMAL) Lipid panel (02/22/2024 11:24 AM ONCOLOGY TECHNICIAN) Cholesterol 202(H) 30 - 199 mg/dL Comment: Interpretive Data Ages < or = 19 years Acceptable: <170 mg/dL Borderline high: 170-199 mg/dL High: >or= 200 mg/dL Ages > or = 20 years Desirable: <200 mg/dL Borderline high: 200-239 mg/dL High: >or= 240 mg/dL Literature References: 1. Expert Panel on Integrated Guidelines for Cardiovascular Health and Risk Reduction in Children and Adolescents. Pediatrics 2011;128:S213 2. NCEP Expert Panel. Circulation 2004;110:227 Current Interpretive Data was last revised on 2017. Triglycerides 59 <=149 mg/dL [facility] Comment: Interpretive Data Ages < or = 9 years Acceptable: <75 mg/dL Borderline high: 75-99 mg/dL High: >or= 100 mg/dL Ages 10 to 20 years Acceptable: <90 mg/dL Borderline high: 90-129 mg/dL High: >or= 130 mg/dL Ages > or = 20 years Desirable: <150 mg/dL Borderline high: 150-199 mg/dL High: 200-499 mg/dL Very high: >or= 499 mg/dL Literature References: 1. Expert Panel on Integrated Guidelines for Cardiovascular Health and Risk Reduction in Children and Adolescents. Pediatrics 2011;128:S213 2. NCEP Expert Panel. Circulation 2004;110:227 Current Interpretive Data was last revised on 2017. HDL 69 >=40 mg/dL [facility] Comment: Interpretive Data Ages < or = 19 years Acceptable: >45 mg/dL Borderline low: 40-45 mg/dL Low: <40 mg/dL Ages > or = 20 years Desirable: >or= 60 mg/dL Low: <40 mg/dL Literature References: 1. Expert Panel on Integrated Guidelines for Cardiovascular Health and Risk Reduction in Children and Adolescents. Pediatrics 2011;128:S213 2. NCEP Expert Panel. Circulation 2004;110:227 Current Interpretive Data was last revised on 2017. LDL, calculated 122 <=129 mg/dL [facility] Comment: Interpretive Data Ages < or = 19 years Acceptable: <110 mg/dL Borderline high: 110-129 mg/dL High: >or= 130 mg/dL Ages > or = 20 years Optimal: <100 mg/dL Near optimal: 100-129 mg/dL Borderline high: 130-159 mg/dL High: >160 mg/dL Calculated using the Toni LDL-C estimating equation. This equation was implemented on 2023. Prior to this date LDL-C was estimated using the Friedewald equation. Literature References: 1. Expert Panel on Integrated Guidelines for Cardiovascular Health and Risk Reduction in Children and Adolescents. Pediatrics 2011;128:S213 2. NCEP Expert Panel. Circulation 2004;110:227 3. Toni Cruz et al. IVETTE Cardiol. 2019July 04;5(5):540-548. doi: 10.1001/jamacardio.2020.0013 Current Interpretive Data was last revised on 2023. Non-HDL Cholesterol 133 mg/dL [facility] Comment: Interpretive Data Ages < or = 19 years Acceptable: <120 mg/dL Borderline high: 120-144 mg/dL High: >145 mg/dL Ages > or = 20 years When triglycerides are >200 mg/dL, Non-HDL cholesterol is a secondary target of therapy with treatment goals that are 30 mg/dL greater than the LDL cholesterol target. Literature References: 1. Expert Panel on Integrated Guidelines for Cardiovascular Health and Risk Reduction in Children and Adolescents. Pediatrics 2011;128:S213 2. NCEP Expert Panel. Circulation 2004;110:227 Current Interpretive Data was last revised on 2017. Chol/HDL ratio 3 [facility] Blood 02/22/2024 11:2 4 AM ONCOLOGY TECHNICIAN 02/22/2024 10:00 PM ONCOLOGY TECHNICIAN Davy Henriquez MD LAB BLOOD ORDERABLES Final Re sult [facility] [address] Department [place] [address] * Comprehensive metabolic panel (02/22/2024 11:24 AM ONCOLOGY TECHNICIAN) Sodium 141 135 - 145 mmol/L Potassium, pl 4.9 3.3 - 4.9 mmol/L [facility] Chloride 103 97 - 110 mmol/L [facility] CO2 25 22 - 32 mmol/L [facility] Anion gap 13 2 - 15 mmol/L [facility] BUN 19 6 - 25 mg/dL [facility] Creatinine 0.60 0.60 - 1.10 mg/dL [facility] Glucose 95 70 - 199 mg/dL [facility] Comment: Interpretive Data Fasting glucose >/= 126 mg/dl is diagnostic for diabetes. Fasting is defined as no caloric intake for at least 8 hours. Fasting glucose between 100 mg/dl to 125 mg/dl is diagnostic of prediabetes. In a patient with classic symptoms of hyperglycemia or hyperglycemic crisis, a random glucose >/= 200 mg/dl is diagnostic for diabetes. In the absence of unequivocal hyperglycemia, results should be confirmed by repeat testing. The classification and Diagnosis of Diabetes Diabetes Care 2021; 46: S19-S40. Current interpretive data was last revised 2022. Calcium 9.5 8.5 - 10.3 mg/dL [facility] Bilirubin, total 0.4 0.1 - 1.2 mg/dL [facility] Protein, pl 6.8 6.5 - 8.5 g/dL [facility] Albumin 4.3 3.5 - 5.0 g/dL [facility] Alk phos 107 40 - 130 Units/L [facility] ALT 20 7 - 45 Units/L [facility] AST 35 10 - 45 Units/L [facility] Blood 02/22/2024 11:2 4 AM ONCOLOGY TECHNICIAN 02/22/2024 10:00 PM ONCOLOGY TECHNICIAN Davy Henriquez MD LAB BLOOD ORDERABLES Final Re [facility] Organization Address City/State/ZIP Co de Phone Number [facility] [address] Department [place] [address] * Dexa Axial Skeleton Bone Density 1 or 2 Site (03/20/2023) Anatomical Region Laterality Modality Body N/A Radiographic Zeanida ging Davy Henriquez MD IMG DXA PROCEDURES Final Resu lt * Screening Mammogram Bilateral W Abhijeet (03/10/2022) Anatomical Region Laterality Modality Breast Bilateral Mammography 03/10/2022 Historical Provider MD PERAZAG MAMMO PROCEDURES Keisha l Result from Last 3 Months or Most Recently Relevant to Health Maintenance Insurance MEDICARE DVS [employer] MEDICARE [employer] Care Teams Application Penetration Tester Relationship Specialty Start Date End Date Davy Henriquez MD PCP - General Family Medicine 01/26/21
--- OUTSIDE RECORDS SUMMARY | 2024-05-20 17:01 | XMS_ITS | Encounter Summary ---
Author Organization [facility] Address [address] [place] [address] Care Team Providers Care Profiler Name Role Phone Unavailable Primary Care Provider Unavailabl e Encounter Details Date Type Department Care Team (Late st Contact Info) Description 08/11/2018 Abstract SFL CONVERSION [address] [place] [address] , Generic Conversion, Social History Tobacco Use Types Packs/Day Years Used Date Smoking Tobacco: Never Assessed Comments Unknown Sex and Gender Information Value Date Recorded Sex Assigned at Not on file Legal Sex Female 6:00 PM HAND SCRAPER Gender Identity Not on file Sexual Orientation Not on file documented as of this encounter Plan of Treatment Not on file documented as of this encounter Visit Diagnoses Not on filedocumented in this encounter
--- OUTSIDE RECORDS SUMMARY | 2024-05-20 17:01 | XMS_ITS | Clinical Summary ---
Author Organization [facility] Address [address] [place] [address] Care Team Providers Care Executive Producer [employer]os Name Role Phone Unavailable Primary Care Provider Unavailabl e Social History Tobacco Use Types Packs/Day Years Used Date Smoking Tobacco: Never Assessed Comments Unknown Sex and Gender Information Value Date Recorded Sex Assigned at Not on file Legal Sex Female 6:00 PM SURGICAL LEAD Gender Identity Not on file Sexual Orientation Not on file Plan of Treatment Health Maintenance Due Date Last Done Comments Colorectal Cancer Screening Colonoscopy (10 Years) 1955 Hepatitis C 1971 DTaP, Tdap and Td Vaccines ( 1 - Tdap) 01/28/1972 Mammogram Screening 1993 Zoster Vaccines (1 of 2) 2003 Dexa Scan (General) 2018 Pneumococcal Vaccine: 65+ Ye ars (1 of 1 - PCV) 2018 COVID-19 Vaccine ( - 2023-2 5 season) 2023 Influenza Adult (#1) 2023 RSV Immunization or 60+ Years (1 - 1-dose 75+ series) 01/28/2028 Meningococcal B Vaccine Aged Out No l onger eligible based on patient's age to complete this topic Meningococcal Vaccine Aged Out No cornell shirin eligible based on patient's age to complete this topic RSV Immunizations Under 20 Months Aged Out No longer eligible based on patient's age to complete this topic
--- OUTSIDE RECORDS SUMMARY | 2024-05-20 17:02 | XMS_ITS | Clinical Summary ---
Author Organization [facility] Address [address] [place] [address] Phone Care Team Providers Care Highway Maintenance Technician Name Role Phone Unavailable Primary Care Provider Unavailabl e Encounters Date Type Department Care Team Description 05/11/2024 External Device Data ST[facility] ABSTRACTION Provider, Abstract 05/11/2024 External Device Data [facility] ABSTRACTION Provider, Abstract 05/08/2024 External Device Data [facility] ABSTRACTION Provider, Abstract 04/24/2024 External Device Data [facility] ABSTRACTION Provider, Abstract 03/28/2024 External Device Data [facility] ABSTRACTION Provider, Abstract 03/18/2024 1:15 PM RACK PRODUCTION WORKER Ancillary Procedure [place] [address] [place] [id number] Yordan Ambrocio MD Encounter for screening mammogram for malignant neoplasm of breast from Last 3 Months Social History Tobacco Use Types Packs/Day Years Used Date Smoking Tobacco: Never Assessed Comments Unknown Sex and Gender Information Value Date Recorded Sex Assigned at Not on file Legal Sex Female 9:14 AM RACK PRODUCTION WORKER Gender Identity Not on file Sexual Orientation Not on file Plan of Treatment Health Maintenance Due Date Last Done Comments COLORECTAL SCREENING 1998 Colorectal Cancer Screening 1998 FIT-DNA Q 3 years 1998 FIT/FOBT Q 1 year 1998 Flex Sig/CT Colonography Q 5 years 1998 PNEUMOCOCCAL VACCINE 50+ YEA RS (2 of 2 - PPSV23) 12/11/2019 12/10/2018 INFLUENZA VACCINE (#1) 2023 2, 12/09/2019, 12/10/2018, Additional history exists BREAST CANCER SCREENING 03/18/2025 03/18/2024, 03/13 RSV VACCINE (60+ or ) (1 - 1-dose 75+ series) 01/28/2028 DTAP/TDAP/TD VACCINES (4 - T d or Tdap) 05/09/2032 05/09/2022, 10/28/2015, 10/27/2015 ZOSTER VACCINE Completed 04/15/2019, 09/2018, 06/15/2014, Additional history exists OSTEOPOROSIS SCREENING Completed 4, 03/20/2023, 10/25/2016 Procedures Procedure Name Priority Date/Time Associated Diagnosis Comments MAMMO 3D ABHIJEET SCREEN BILAT W OR WO CAD Routine 03/18/2024 1:25 PM RACK PRODUCTION WORKER Encounter for screening mammogram for malignant neoplasm of breast from Last 3 Months Results * MAMMO 3D ABHIJEET SCREEN BILAT W OR WO CAD (03/18/2024 1:25 PM RACK PRODUCTION WORKER) Anatomical Region Laterality Modality Breast Bilateral Mammography 03/18/2024 1:25 PM RACK PRODUCTION WORKER Narrative 03/18/2024 1:33 PM RACK PRODUCTION WORKER EXAM: MAMMO 3D ABHIJEET SCREEN BILAT W OR WO CAD DATE: 03/18/2024 HISTORY: Encounter for screening mammogram for malignant neoplasm of breast COMPARISON: 03/23/2023 DENSITY: Heterogeneously dense which could obscure small masses. FINDINGS: Bilateral screening mammograms with tomosynthesis were performed with standard CC and MLO views obtained. Computer assisted detection was utilized. Little significant change is noted. The parenchymal benign calcifications including vascular calcifications are noted. Small nodular mass in the central lower left breast is stable. Pattern is essentially unchanged. No new dominant mass, architectural distortion, nipple retraction, skin thickening, or suspicious calcifications are seen. ASSESSMENT: BIRADS Category 2: Benign finding(s). Digital technology was employed plus computer-aided detection software was utilized in interpretation of these images. us Yordan Ambrocio MD MAMMO ORDERABLES Final Resul t from Last 3 Months Insurance MEDICARE PART A AND B GENERIC PAYOR
--- OUTSIDE RECORDS SUMMARY | 2024-05-20 17:02 | XMS_ITS | Clinical Summary ---
Author Organization [facility] Address [address] [place] [address] Care Team Providers Care Captain Room Service Name Role Phone Davy Henriquez MD Primary Care Provider [phone] Source Comments [facility],non-owned Affiliates and Associated Physician Practices is amultiple site organization consisting of ambulatory clinics and hospital sitesin [place], [place] and [place]. This disclosure is being madepursuant to the Care Everywhere program and may not contain all information available regarding this patient. Last updated 17.[facility] Allergies No known active allergies Medications * Be aware that medications may not be up to date on this document. Alwaysverify current medications with the patient. Medication Sig Dispensed Refills Start Date End Date Status Multiple Vitamins-Minerals (EYE VITAMINS) CAPS Take 1 (one) capsule by mouth once daily Active calcium carbonate - vitamin D (CALTRATE 600+D) 600-800 MG-UNIT tablet Take 1 (one) tablet by mouth daily with breakfast Active Active Problems Problem Noted Date Diagnosed Date Need for prophylactic vaccin ation and inoculation against influenza 12/09/2019 Assessment & Plan (12/09/2019 7:33 PM CDT): Flu shot is given today. Overweight 10/23/2017 Assessment & Plan (12/09/2019 7:34 PM CDT): Exact BMI discussed. Goal of losing 4 pounds in the next year is discussed. Low-carbohydrate diet could be helpful. Continued regular exercise is encouraged. Post-menopausal 10/25/2016 Routine general medical exam ination at a health care facility 10/13/2015 Resolved Problems Problem Noted Date Diagnosed Date Resolved Date Elevated BP without diagnosis of hypertension 12/11/19 19 12/09/2019 Screening for hypercholesterolemia 10/13/2015 10/25/2016 Need for hepatitis C screening test 10/13/2015 10/25/2016 Screening for HIV (human imm unodeficiency virus) 10/13/2015 10/25/2016 Sensorineural hearing loss, asymmetrical 07/10/2014 12/09/2019 Screening for condition 11/03/2008 08/11/2015 Overview (12/04/2014): Adult Abstraction Problem List Screening Colonoscopy: Result: Negative Date:05/27/08 Pap Smear: Date:05/05/08 Mammogram: Date:05/05/08 Immunizations Name Administration Dates Next Due INFLUENZA VACCINE 01/14/2021 INFLUENZA VACCINE, HIGH-DOSE , QUADR. (FLUZONE HIGH-DOSE QUADRIVALENT; 65Y+), 0.7 ML (HD-IIV4) 12/09/2019,12/10/2018 Pneumococcal Pcv13 Conj 12/10/2018 TDAP (7yrs+) 10/28/2015,10/27/2015 ZOSTER VACCINE, LIVE 06/15/2014,04/06/2014 Zoster Hzv Vacc Recombinant Inj Im 04/15/2019, Family History Medical History Relation Name Comments Hypercholesterolemia Brother 2 X2 Hypertension Brother 3 X2 Hypertension Father Cancer Mother colon-RIP Hypertension Mother Relation Name Status Comments Brother 1 Alive X2 Brother 2 Alive Brother 3 Father SD Mother Colon Cancer Sister 1 Alive X2 Sister 2 Alive Social History Tobacco Use Types Packs/Day Years Used Date Smoking Tobacco: Never Smokeless Tobacco: Never Tobacco Cessation:Counseling Given: Yes Alcohol Use Standard Drinks/Week Comments No 0 (1 standard drink = 0.6 oz pur e alcohol) PHQ-2 Answer Date Recorded Patient Health Questionnaire-2 Score 0 01/31/2023 Sex and Gender Information Value Date Recorded Sex Assigned at Not on file Gender Identity Not on file Sexual Orientation Not on file Last Filed Vital Signs Vital Sign Reading Time Taken Comments Blood Pressure 130/82 02/12/2024 1:05 PM MILL STENCILER Pulse 82 12/09/2019 10:46 AM CDT Temperature 35.9 C (96.7 F) 12/09/2019 10:46 AM CDT Respiratory Rate 18 12/09/2019 10:46 AM CDT Oxygen Saturation 99% 12/09/2019 10:46 AM CDT Inhaled Oxygen Concentration - - Weight 75.5 kg (166 lb 6.4 oz) 02/12/2024 1:05 P M MILL STENCILER Height 160 cm (5' 3 ) 02/12/2024 1:05 PM MILL STENCILER Body Mass Index 29.48 02/12/2024 1:05 PM MILL STENCILER Plan of Treatment Health Maintenance Due Date Last Done Comments COLOGUARD (AGES 45-75) - COLON CA SCREENING [address] COLONOGRAPHY - COLON CA SCREENING 1955 FIT - COLON CA SCREENING 1955 FLEX SIG - COLON CA SCREENING 1955 PNEUMOCOCCAL VACCINE 50+ (2 of 2 - PPSV23) 12/11/2019 12/10/2018 MEDICARE AWV 12 MONTHS 12/08/2020 12/09/2019, 12/09/2019 LIPID TESTING 10/23/2022 10/23/2017, 11/2015, 05/12/2008 COVID-19 VACCINE (3 - season) 2023 06/02/2020, 05/12/2020 INFLUENZA VACCINE (#1) 2023 , 12/09/2019, 12/10/2018 DEPRESSION SCREENING 03/06/2024 01/31/2023 DTAP/TDAP/TD VACCINES (3 - Td or Tdap) 10/27/2025 10/28/2015, 10/27/2015 MAMMOGRAM 03/18/2026 03/18/2024, 10/2023, 03/13/2023, Additional history exists Respiratory Syncytial Virus (RSV) Vaccine Pt: or over 60 yrs (1 - 1-dose 75+ series) 01/28/2028 COLONOSCOPY - COLON CA SCREENING 06/20/2028 06/20/2018 (Done Outside Per Report), 08/23/2009 Colorectal Cancer Screening 06/20/2028 HEPATITIS C SCREENING Completed 10/13/2015 ZOSTER VACCINE Completed 04/15/2019, 0 09/2018, 06/15/2014, Additional history exists BONE DENSITY TESTING Completed 03/20/2023, 08/22/20 17 HEPATITIS B VACCINE Aged Out No longe r eligible based on patient's age to complete this topic HIB VACCINE Aged Out No longer eligi ble based on patient's age to complete this topic HPV VACCINE Aged Out No longer eligi ble based on patient's age to complete this topic MENINGOCOCCAL (Group B) VACCINE SHARED DECISION-MAKING Aged Out No longer eligible based on patient's age to complete this topic MENINGOCOCCAL GROUPS A/C/Y/W VACCINE Aged Out No longer eligible based on patient's age to complete this topic Procedures Procedure Name Priority Date/Time Associated Diagnosis Comments MAMMOGRAM 03/18/2024 LIPID PROFILE Routine 10/23/2017 10:00 AM CDT Screening for hypercholesterolemia DEXA BONE DENSITY 2 SITES Routine 10/25/2016 HEPATITIS C ANTIBODY Routine 10/13/2015 12:36 PM CDT Need for hepatitis C screening test from Last 3 Months or Most Recently Relevant to Health Maintenance Results * MAMMOGRAM (03/18/2024) Anatomical Region Laterality Modality Other 03/18/2024 Narrative 03/18/2024 Ordered by an unspecified provider. Scanned Document SCANNING ONLY * LIPID PROFILE (10/23/2017 10:00 AM CDT) Cholesterol 172 <200 mg/dL [facility] ACCOUNT BILL Triglycerides 73 <150 mg/dL [facility] ACCOUNT BILL HDL Cholesterol 61 >40 mg/dL [facility] ACCOUNT BILL VLDL Calculated 15 <=30 mg/dL [facility] ACCOUNT BILL LDL Calculated 96 <130 mg/dL [facility] ACCOUNT BILL Comment:FASTING Blood BLOOD SPECIMEN / Unknown 10/23/2017 10:00 AM CDT 10/23/2017 Narrative Resulting Agency Comment [facility] [address] [facility] [phone] Janes Solis MD LAB - CHEMISTRY THA Reyna Organization Address City/State/ZIP Co de Phone Number [facility] ACCOUNT BILL [address] [place] [address] * DEXA BONE DENSITY 2 SITES (10/25/2016) Anatomical Region Laterality Modality Other Provider Unknown DEXA ORDERABLES * HEPATITIS C ANTIBODY (10/13/2015 12:36 PM CDT) Hepatitis C Antibody Non Reactive Non Reactive [facility] ACCOUNT BILL Comment: Non Reactive - Antibodies to Hepatitis C virus (HCV) were no t detected, result does not exclude early acute HCV infection. Blood specimen (specimen) BLOOD SPECIMEN / Unknown 10/13/2015 12:36 PM CDT 10/13/2015 3:16 PM CDT Narrative Resulting Agency Comment [facility] [address] [facility] [phone] Janes Solis MD LAB - CHEMISTRY THA LITTLEJOHN [facility] ACCOUNT BILL [address] [place] [address] from Last 3 Months or Most Recently Relevant to Health Maintenance Care Teams Captain Room Service Relationship Specialty Start Date End Date Davy Henriquez MD [address] [place] [address] [address] [place] [address] PCP - General Family Medicine 02/12/24
--- OUTSIDE RECORDS SUMMARY | 2024-05-20 17:02 | XMS_ITS | Referral Summary ---
Author Organization [facility] [employer] [facility] Address [address] [place] [address] Care Team Providers Care Collar Pointer Name Role Phone Davy Henriquez MD Primary Care Provider [phone] Source Comments [facility] [employer],non-owned Affiliates and Associated Physician Practices is amultiple site organization consisting of ambulatory clinics and hospital sitesin [place], [place], [place] and [place]. This disclosure is being madepursuant to the Care Everywhere program and may not contain all information available regarding this patient. 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 [address] [facility] [phone] Janes Soils MD LAB - CHEMISTRY THA [facility] Organization Address City/State/ZIP Co de Phone Number [facility] ACCOUNT BILL [address] [place] [address] * DEXA BONE DENSITY 2 SITES (10/25/2016) [...] 3:16 PM CDT Narrative Resulting Agency Comment [facility] [address] [facility] [phone] Janes Solis MD LAB - CHEMISTRY THA LITTLEJOHN [facility] ACCOUNT BILL [address] [place] [address] from Last 3 Months or Most Recently Relevant to Health Maintenance Care Teams Collar Pointer Relationship Specialty Start Date End Date Davy Henriquez MD [address] [place] [address] [address] [place] [address] PCP - General Family Medicine 02/12/24
--- OUTSIDE RECORDS SUMMARY | 2024-05-20 17:02 | XMS_ITS | Referral Summary ---
Author Organization [facility] [address] [place] Address [address] [place] [address] Care Team Providers Care Body Presser Name Role Phone Davy Henriquez MD Primary Care Provider [phone] Encounters Date Type Department Care Team Description 03/05/2024 Telephone [facility] Family Medicine at [address] [place] [address] Davy Henriquez MD Medical Records Request 03/04/2024 1:00 PM RAILROAD CAR CLEANING SUPERVISOR Office Visit [facility] Family Medicine at [address] [place] [address] Davy Henriquez MD Medicare annual wellness visit, subsequent (Primary Dx); Age-related osteoporosis without current pathological fracture; Breast cancer screening by mammogram 02/22/2024 11:24 AM RAILROAD CAR CLEANING SUPERVISOR - 02/22/2024 11:59 PM RAILROAD CAR CLEANING SUPERVISOR Hospital Encounter [address] [address] Medicare annual wellness visit, subsequent Discharge Disposition: Discharge to home or self care 02/22/2024 11:30 AM RAILROAD CAR CLEANING SUPERVISOR Lab [facility] Outpatient Lab at [address] [address] Medicare annual wellness visit, subsequent (Primary Dx) from Last 3 Months Allergies No known active allergies Medications vitamins A,C,C-ufmu-gnuvou (OCUVITE) 7,160 unit- 113 mg-100 unit tablet [...] be helpful. Continued regular exercise is encouraged. Immunizations Immunization Administration Dates Next Due Influenza, [...] on file Legal Sex Female 8:02 PM RAILROAD CAR CLEANING SUPERVISOR Gender Identity Not on file Sexual Orientation Not on file Last Filed Vital Signs Vital Sign Reading Time Taken Comments Blood Pressure 140/96 03/04/2024 1:58 PM RAILROAD CAR CLEANING SUPERVISOR Pulse 78 03/04/2024 12:59 PM RAILROAD CAR CLEANING SUPERVISOR Temperature 36.4 C (97.6 F) 03/04/2024 12:59 PM RAILROAD CAR CLEANING SUPERVISOR Respiratory Rate 18 03/15/2023 8:50 AM RAILROAD CAR CLEANING SUPERVISOR Oxygen Saturation 98% 03/04/2024 12:59 PM RAILROAD CAR CLEANING SUPERVISOR Inhaled Oxygen Concentration - - Weight 72.2 kg (159 lb 3.2 oz) 03/04/2024 12:59 PM RAILROAD CAR CLEANING SUPERVISOR Height 162.6 cm (5' 4 ) 03/04/2024 12:59 PM RAILROAD CAR CLEANING SUPERVISOR Body Mass Index 27.33 03/04/2024 12:59 PM RAILROAD CAR CLEANING SUPERVISOR Plan of Treatment Not on file Procedures [...] Maintenance Results * eGFR (02/22/2024 11:24 AM RAILROAD CAR CLEANING SUPERVISOR) eGFR >90 >=60 mL/min/1. 73 m2 Comment: [...] reviewed 2021. Blood 02/22/2024 11:2 4 AM RAILROAD CAR CLEANING SUPERVISOR 02/22/2024 10:24 PM RAILROAD CAR CLEANING SUPERVISOR us Davy Henriquez MD LAB BLOOD ORDERABLES Final Re sult [facility] [address] Department [place] [address] * Differential, auto (02/22/2024 11:24 AM RAILROAD CAR CLEANING SUPERVISOR) Neutrophil abs 1.8 1.5 - 6.5 K/cumm Imm gran abs 0.0 0.0 - 0.1 K/cumm [facility] Lymphocyte abs 0.9 0.8 - 3.3 K/cumm [facility] Monocyte abs 0.3 0.2 - 0.8 K/cumm [facility] Eosinophil abs 0.2 0.0 - 0.5 K/cumm [facility] Basophil abs 0.0 0.0 - 0.1 K/cumm [facility] Neutrophil pct 53.7 % [facility] Comment: Interpretive Data Percent cell count reference ranges are not reported, since discordance with absolute values may lead to misinterpretation of CBC data. Current Interpretive Data was last revised on 2017. Imm gran pct 0.3 % [facility] Comment: Interpretive Data Percent cell count reference ranges are not reported, since discordance with absolute values may lead to misinterpretation of CBC data. Current Interpretive Data was last revised on 2017. Lymphocyte pct 27.7 % [facility] Comment: Interpretive Data Percent cell count reference ranges are not reported, since discordance with absolute values may lead to misinterpretation of CBC data. Current Interpretive Data was last revised on 2017. Monocyte pct 10.2 % [facility] Comment: Interpretive Data Percent cell count reference ranges are not reported, since discordance with absolute values may lead to misinterpretation of CBC data. Current Interpretive Data was last revised on 2017. Eosinophil pct 7.2 % [facility] Comment: Interpretive Data Percent cell count reference ranges are not reported, since discordance with absolute values may lead to misinterpretation of CBC data. Current Interpretive Data was last revised on 2017. Basophil pct 0.9 % [facility] Comment: Interpretive Data Percent cell count reference ranges are not reported, since discordance with absolute values may lead to misinterpretation of CBC data. Current Interpretive Data was last revised on 2017. Blood 02/22/2024 11:2 4 AM RAILROAD CAR CLEANING SUPERVISOR 02/22/2024 10:00 PM RAILROAD CAR CLEANING SUPERVISOR Davy Henriquez MD LAB BLOOD ORDERABLES Final Re sult [facility] [address] Department [place] [address] * (ABNORMAL) CBC with auto differential (02/22/2024 11:24 AM RAILROAD CAR CLEANING SUPERVISOR) WBC 3.3(L) 3.8 - 9.9 K/cumm Hgb 13.8 11.9 - 15.5 g/dL [facility] Hct 44.1 35.6 - 45.5 % [facility] Plt 218 150 - 400 K/cumm [facility] MPV 10.7 9.1 - 12.3 fL [facility] RBC 4.74 3.90 - 5.20 M/cumm [facility] MCV 93.0 81.3 - 96.4 fL [facility] MCH 29.1 27.1 - 33.3 pg [facility] MCHC 31.3(L) 32.3 - 35.7 g/dL [facility] RDW CV 14.5 11.1 - 14.9 % [facility] RDW SD 49.9(H) 35.7 - 48.1 fL [facility] NRBC abs 0.00 0.00 - 0.01 K/cumm [facility] Blood 02/22/2024 11:2 4 AM RAILROAD CAR CLEANING SUPERVISOR 02/22/2024 10:00 PM RAILROAD CAR CLEANING SUPERVISOR us Davy Henriquez MD LAB BLOOD ORDERABLES Final Re sult [facility] [address] Department [place] [address] * (ABNORMAL) Lipid panel (02/22/2024 11:24 AM RAILROAD CAR CLEANING SUPERVISOR) Cholesterol 202(H) 30 - 199 mg/dL Comment: [...] 3. Toni Cruz et al. IVETTE Cardiol. 2020 July 04;5(5):540-548. doi: [email or web address] Current Interpretive Data was last revised on 2023. Non-HDL Cholesterol 133 mg/dL [facility] Comment: Interpretive Data Ages < [...] last revised on 2017. Chol/HDL ratio 3 [facility] Blood 02/22/2024 11:2 4 AM RAILROAD CAR CLEANING SUPERVISOR 02/22/2024 10:00 PM RAILROAD CAR CLEANING SUPERVISOR us Davy Henriquez MD LAB BLOOD ORDERABLES Final Re sult Performing Organization Address [facility] Co de Phone Number [facility] [address] [place] [address] * Comprehensive metabolic panel (02/22/2024 11:24 AM RAILROAD CAR CLEANING SUPERVISOR) Sodium 141 135 - 145 mmol/L Potassium, [...] [facility] Blood 02/22/2024 11:2 4 AM RAILROAD CAR CLEANING SUPERVISOR 02/22/2024 10:00 PM RAILROAD CAR CLEANING SUPERVISOR Davy Henriquez MD LAB BLOOD ORDERABLES Final Re sult Performing Organization Address [facility] Co de Phone Number [facility] [address] [place] [address] * Dexa Axial Skeleton Bone Density 1 or 2 Site (03/20/2023) Anatomical Region Laterality Modality Body N/A Radiographic Zenaida ging Davy Henriquez MD IMG DXA PROCEDURES Final Resu lt * Screening Mammogram Bilateral W Abhijeet (03/10/2022) Anatomical Region Laterality Modality Breast Bilateral Mammography 03/10/2022 Historical Provider IMG MAMMO PROCEDURES Keisha l Result from Last 3 Months or Most Recently Relevant to Health Maintenance Insurance MEDICARE [employer] MEDICARE [employer] Care Teams Body Presser Relationship Specialty Start Date End Date Davy Henriquez MD PCP - General Family Medicine 01/26/21
--- OUTSIDE RECORDS SUMMARY | 2024-05-20 17:02 | XMS_ITS | Patient Health Summary ---
Author Organization [facility] Address [address] [place] [address] Care Team Providers Care Senior Php Web Developer Name Role Phone Davy Henriquez MD Primary Care Provider [phone] Note from [facility],non-owned Affiliates and Associated Physician Practices is amultiple site organization consisting of ambulatory clinics and hospital sitesin [place], [place], [place] and [place]. This disclosure is being madepursuant to the Care Everywhere program and may not contain all information available regarding this patient. Last updated 17.[facility] Allergies No known active allergies Medications * Be aware that medications may not be up to date on this document. Alwaysverify current medications with the patient. * Multiple Vitamins-Minerals (EYE VITAMINS) CAPS Take 1 (one) capsule by mouth once daily * calcium carbonate - vitamin D (CALTRATE 600+D) 600-800 MG-UNIT tablet Take 1 (one) tablet by mouth daily with breakfast Active Problems Problem Noted Date Diagnosed Date Need for prophylactic vaccin ation and inoculation against influenza 12/09/2019 Overweight 10/23/2017 Post-menopausal 10/25/2016 Routine general medical exam ination at a health care facility 10/13/2015 Resolved Problems Problem Noted Date Diagnosed Date Resolved Date Elevated BP without diagnosis of hypertension 12/11/19 19 12/09/2019 Screening for hypercholesterolemia 10/13/2015 10/25/2016 Need for hepatitis C screening test 10/13/2015 10/25/2016 Screening for HIV (human imm unodeficiency virus) 10/13/2015 10/25/2016 Sensorineural hearing loss, asymmetrical 07/10/2014 12/09/2019 Screening for condition 11/03/20080 11/2015 Immunizations * INFLUENZA VACCINE(Given 01/14/2021) * INFLUENZA VACCINE, HIGH-DOSE, QUADR. (FLUZONE HIGH-DOSE QUADRIVALENT; 65Y+), 0.7 ML (HD-IIV4)(Given 12/09/2019, 12/10/2018) * Pneumococcal Pcv13 Conj(Given 12/10/2018) * TDAP (7yrs+)(Given 10/28/2015, 10/27/2015) * ZOSTER VACCINE, LIVE(Given 06/15/2014, 04/06/2014) * Zoster Hzv Vacc Recombinant Inj Im(Given 04/15/2019, 01/10/2019) Social History Tobacco Use Types Packs/Day Years [...] Comments Blood Pressure 130/82 02/12/2024 1:05 PM MINI BAR ATTENDANT Pulse 82 12/09/2019 10:46 AM CDT Temperature 35.9 C (96.7 F) 12/09/2019 10:46 AM CDT Respiratory Rate 18 12/09/2019 10:46 AM CDT Oxygen Saturation 99% 12/09/2019 10:46 AM CDT Inhaled Oxygen Concentration - - Weight 75.5 kg (166 lb 6.4 oz) 02/12/2024 1:05 P M MINI BAR ATTENDANT Height 160 cm (5' 3 ) 02/12/2024 1:05 PM MINI BAR ATTENDANT Body Mass Index 29.48 02/12/2024 1:05 PM MINI BAR ATTENDANT Procedures * MAMMOGRAM(Performed 03/18/2024) * MAMMOGRAM(Performed 03/13/2023) * PAP IG LB(Performed 01/31/2023) Performed for Pap smear, as part of routine gynecological examination * MAMMOGRAM(Performed 03/10/2022) * PAP IG LB RFLX HPV APTIMA ASCU(Performed 01/11/2021) Performed for Well woman exam with routine gynecological exam * MAMMO BILAT SCREENING(Performed 01/11/2021) Performed for Visit for screening mammogram * MAMMO BILAT SCREENING(Performed 11/26/2019) Performed for Visit for screening mammogram * PAP IG LB RFLX HPV APTIMA ASCU(Performed 11/19/2018) Performed for Well woman exam with routine gynecological exam * MAMMOGRAPHY ORDER(Performed 11/19/2018) * MAMMO BILAT SCREENING(Performed 11/19/2018) Performed for Visit for screening mammogram * PAP IG RFLX HPV ASCU(Performed 10/23/2017) Performed for Well woman exam with routine gynecological exam * GLUCOSE(Performed 10/23/2017) Performed for Screening for diabetes mellitus * TSH+FREE T4 PANEL(Performed 10/23/2017) Performed for Weight gain * LIPID PROFILE(Performed 10/23/2017) Performed for Screening for hypercholesterolemia * MAMMOGRAPHY ORDER(Performed 10/23/2017) * MAMMO BILAT SCREENING(Performed 10/23/2017) Performed for Visit for screening mammogram * DEXA BONE DENSITY 2 SITES(Performed 10/25/2016) * PAP IG RFLX HPV ASCU(Performed 09/19/2016) Performed for Well woman exam with routine gynecological exam * MAMMOGRAPHY ORDER(Performed 09/19/2016) * HEPATITIS C ANTIBODY(Performed 10/13/2015) Performed for Need for hepatitis C screening test * LIPID PROFILE(Performed 10/13/2015) Performed for Screening for hypercholesterolemia * HIV-1 HIV-2 ANTIGEN/ANTIBODY W RFLX(Performed 10/13/2015) Performed for Screening for HIV (human immunodeficiency virus) * PAP IG RFLX HPV ASCU(Performed 08/25/2015) Performed for Well woman exam with routine gynecological exam * MAMMO BILAT SCREENING(Performed 08/25/2015) Performed for Visit for screening mammogram * PAP IG RFLX HPV ASCU(Performed 07/14/2014) Performed for Routine gynecological examination * MAMMO BILAT SCREENING(Performed 07/14/2014) * PAP IG RFLX HPV ASCU(Performed 06/18/2013) Performed for Routine gynecological examination * MAMMO BILAT SCREENING(Performed 06/18/2013) * PAP IG RFLX HPV ASCU(Performed 01/23/2012) Performed for Routine gynecological examination * MAMMO BILAT SCREENING(Performed 01/23/2012) * PAP IG RFLX HPV ASCU(Performed 10/12/2010) Performed for Routine gynecological examination * MAMMO BILAT SCREENING(Performed 09/27/2010) * PAP IG RFLX HPV ASCU(Performed 09/22/2009) Performed for Routine Gynecological Examination * MAMMO BILAT SCREENING(Performed 09/22/2009) * THYROID PANEL W TSH (TSH,T4,T3 UPTAKE,FTI)(Performed 05/12/2008) * LIPID PROFILE(Performed 05/12/2008) * COMPREHENSIVE METABOLIC PANEL(Performed 05/12/2008) * CBC W AUTO DIFFERENTIAL(Performed 05/12/2008) * PAP LB RFLX HPV ASCU(Performed 05/05/2008) Performed for Routine Gynecological Examination * MAMMO BILAT SCREENING(Performed 05/05/2008) Results * MAMMOGRAM (03/18/2024) Only the most recent of3 resultswithin the time period is included. Anatomical Region Laterality Modality Other 03/18/2024 Narrative 03/18/2024 Ordered by an unspecified provider. Scanned Document SCANNING ONLY * PAP IG LB (01/31/2023 11:27 AM MINI BAR ATTENDANT) Diagnosis [facility] INSURANCE BILL Comment: NEGATIVE FOR INTRAEPITHELIAL LESION OR MALIGNANCY. THIS SPECIMEN WAS RESCREENED PART OF OUR BURNT LIME DRAWER PROGRAM. Specimen Adequacy [facility] INSURANCE BILL Comment: Satisfactory for evaluation. Endocervical and/or squamous metaplastic cells (endocervical component) are present. Clinician Provided ICD10 [facility] INSURANCE BILL Comment:Z01.419 Performed by [facility] INSURANCE BILL Comment:Mark Raya Cytote chnologist (ASCP) QC Reviewed by [facility] INSURANCE BILL Comment:Dirk Smith totechnologist Comment . [facility] INSURANCE BILL Note [facility] INSURANCE BILL Comment: The Pap smear is a screening test designed to aid in the detection of premalignant and malignant conditions of the uterine cervix. It is not a diagnostic procedure and should not be used as the sole means of detecting cervical cancer. Both false-positive and false-negative reports do occur. . IGLBP CPT Code Automation [facility] INSURANCE BILL Comment: This liquid based ThinPrep(R) pap test was screened with the use of an image guided system. Pathology/Cytolog y PART OF UTERINE CERVIX / Unknown 01/31/2023 11:27 AM MINI BAR ATTENDANT 01/31/2023 Narrative [facility] INSURANCE BILL - 02/03/2023 1:09 PM MINI BAR ATTENDANT Source.............Cervix;Endocervix No. of containers..01 ThinPrep Vial Resulting Agency Comment Lab Testing performed at: [address] [place] [id number] Yordan Ambrocio MD LAB - PATHOLOGY/CYTO LOGY ORDERABLES [facility] INSURANCE BILL [address] [place] [address] * PAP IG LB RFLX HPV APTIMA ASCU (01/11/2021 2:19 PM MINI BAR ATTENDANT) Only the most recent of2 resultswithin the time period is included. Diagnosis [facility] INSURANCE BILL Comment: NEGATIVE FOR INTRAEPITHELIAL LESION OR MALIGNANCY. CELLULAR CHANGES ASSOCIATED WITH ATROPHY ARE PRESENT. THIS SPECIMEN WAS RESCREENED PART OF OUR BURNT LIME DRAWER PROGRAM. Specimen Adequacy [facility] INSURANCE BILL Comment: Satisfactory for evaluation. Endocervical component may not be distinguished in cases of atrophy. Clinician Provided ICD10 [facility] INSURANCE BILL Comment: Z01.419 Z12.31 Performed by [facility] INSURANCE BILL Comment:Comfort patterson, Hydrator (ASCP) QC Reviewed by [facility] INSURANCE BILL Comment:Vicki Sidhu, Cy totechnologist (ASCP) Comment . [facility] INSURANCE BILL Note [facility] INSURANCE BILL Comment: The Pap smear is a screening test designed to aid in the detection of premalignant and malignant conditions of the uterine cervix. It is not a diagnostic procedure and should not be used as the sole means of detecting cervical cancer. Both false-positive and false-negative reports do occur. . IGLBP CPT Code Automation [facility] INSURANCE BILL Comment: This liquid based ThinPrep(R) pap test was screened with the use of an image guided system. Note [facility] INSURANCE BILL Comment: The HPV DNA reflex criteria were not met with this specimen result therefore, no HPV testing was performed. . Pathology/Cytolog y PART OF UTERINE CERVIX / Unknown 01/11/2021 2:19 PM MINI BAR ATTENDANT 01/12/2021 Narrative [facility] INSURANCE BILL - 01/15/2021 1:08 PM MINI BAR ATTENDANT Source.............Cervix;Endocervix Other..............Post Menopausal No. of containers..01 ThinPrep Vial Resulting Agency Comment Lab Testing performed at: [address] [place] [id number] Niranjan Aleman MD LAB - PATHOLOGY/CYTO LOGY ORDERABLES [facility] INSURANCE BILL [address] [place] [address] * MAMMO BILAT SCREENING (01/11/2021) Only the most recent of11 resultswithin the time period is included. Anatomical Region Laterality Modality Breast Bilateral Mammography 01/11/2021 Niranjan Aleman MD MAMMO ORDERABLES * MAMMOGRAPHY ORDER (11/19/2018) Only the most recent of3 resultswithin the time period is included. Anatomical Region Laterality Modality Mammography Scanned Document MAMMO ORDERABLES * PAP IG RFLX HPV ASCU (10/23/2017 2:18 PM CDT) Only the most recent of8 resultswithin the time period is included. Diagnosis [facility] INSURANCE BILL Comment: NEGATIVE FOR INTRAEPITHELIAL LESION AND MALIGNANCY. CELLULAR CHANGES ASSOCIATED WITH ATROPHY AND INFLAMMATION ARE PRESENT. Specimen Adequacy [facility] INSURANCE BILL Comment: Satisfactory for evaluation. Endocervical component may not be distinguished in cases of atrophy. Areas of partially obscuring inflammtory exudate are present. Clinician Provided ICD10 [facility] INSURANCE BILL Comment: Z01.419 Z12.31 Performed by [facility] INSURANCE BILL Comment:Mackenzie Hernandez Cytot echnologist (ASCP) Comment . [facility] INSURANCE BILL Note [facility] INSURANCE BILL Comment: The Pap smear is a screening test designed to aid in the detection of premalignant and malignant conditions of the uterine cervix. It is not a diagnostic procedure and should not be used as the sole means of detecting cervical cancer. Both false-positive and false-negative reports do occur. . IGLBP CPT Code Automation [facility] INSURANCE BILL Comment: This liquid based ThinPrep(R) pap test was screened with the use of an image guided system. Note [facility] INSURANCE BILL Comment: The HPV DNA reflex criteria were not met with this specimen result therefore, no HPV testing was performed. . Pathology/Cytolog y PART OF UTERINE CERVIX / Unknown 10/23/2017 2:18 PM CDT 10/23/2017 Narrative [facility] INSURANCE BILL - 10/25/2017 11:17 AM CDT No. of containers..01 ThinPrep Vial Resulting Agency Comment [facility] [place] [place] [phone] Niranjan Aleman MD LAB - PATHOLOGY/CYTO LOGY ORDERABLES Performing Organization Address City/[facility]/ZIP Co de Phone Number [facility] INSURANCE BILL [address] [place] [address] * TSH+FREE T4 PANEL (10/23/2017 10:00 AM CDT) TSH 0.949 0.358 - 3.740 uIU/mL [facility] ACCOUNT BILL T4 Free 1.04 0.65 - 1.34 ng/dL [facility] ACCOUNT BILL Comment:FASTING Blood BLOOD SPECIMEN / Unknown 10/23/2017 10:00 AM CDT 10/23/2017 Narrative Resulting Agency Comment [facility] [address] [facility] [phone] Janes Solis MD LAB - CHEMISTRY THA LITTLEJOHN Performing Organization Address City/[facility]/ZIP Co de Phone Number [facility] ACCOUNT BILL [address] [place] [address] * GLUCOSE (10/23/2017 10:00 AM CDT) Glucose 92 74 - 106 mg/dL [facility] ACCOUNT BILL Comment:FASTING Blood BLOOD SPECIMEN / Unknown 10/23/2017 10:00 AM CDT 10/23/2017 Narrative Resulting Agency Comment [address] [phone] Janes Solis MD LAB - CHEMISTRY THA LITTLEJOHN Performing Organization Address City/[facility]/ZIP Co de Phone Number [facility] ACCOUNT BILL [address] [place] [address] * LIPID PROFILE (10/23/2017 10:00 AM CDT) Only the most recent of3 resultswithin the time period is included. Cholesterol 172 <200 mg/dL [facility] ACCOUNT BILL Triglycerides 73 <150 mg/dL [facility] ACCOUNT BILL HDL Cholesterol 61 >40 mg/dL [facility] ACCOUNT BILL VLDL Calculated 15 <=30 mg/dL [facility] ACCOUNT BILL LDL Calculated 96 <130 mg/dL [facility] ACCOUNT BILL Comment:FASTING Blood BLOOD SPECIMEN / Unknown 10/23/2017 10:00 AM CDT 10/23/2017 Narrative Resulting Agency Comment [address] [phone] Janes Solis MD LAB - CHEMISTRY THA LITTLEJOHN Performing Organization Address [facility] Co de Phone Number [facility] ACCOUNT BILL [address] [place] [address] * DEXA BONE DENSITY 2 SITES (10/25/2016) Anatomical Region Laterality Modality Other Provider Unknown DEXA ORDERABLES * HIV-1 HIV-2 ANTIGEN/ANTIBODY W RFLX ([facility]) (10/13/2015 12:36 PM CDT) HIV Screen 4th Generation w Reflex Non Reactive Non Reactive [facility] ACCOUNT BILL Blood specimen (specimen) BLOOD SPECIMEN / Unknown 10/13/2015 12:36 PM CDT 10/13/2015 3:57 PM CDT Narrative Resulting Agency Comment [facility] [address] [facility] [phone] Janes Solis MD LAB - SEROLOGY ORDER HEIDI Performing Organization Address City/[facility]/ZIP Co de Phone Number [facility] ACCOUNT BILL [address] [place] [address] * HEPATITIS C ANTIBODY (10/13/2015 12:36 PM CDT) Hepatitis C Antibody Non Reactive Non Reactive [facility] ACCOUNT BILL Comment: Non Reactive - Antibodies to Hepatitis C virus (HCV) were no t detected, result does not exclude early acute HCV infection. Blood specimen (specimen) BLOOD SPECIMEN / Unknown 10/13/2015 12:36 PM CDT 10/13/2015 3:16 PM CDT Narrative Resulting Agency Comment [facility] [address] [facility] [phone] Janes Solis MD LAB - CHEMISTRY THA LITTLEJOHN [facility] ACCOUNT BILL [address] [place] [address] * THYROID PANEL W TSH (05/12/2008 11:39 AM CDT) Pathologist [facility] TSH 0.946 0.450 - 4.500 uIU/mL [facility] ACCOUNT BILL T4 Total 6.7 4.5 - 12.0 ug/dL [facility] ACCOUNT BILL T3 Uptake 38 24 - 39 % [facility] ACCOUNT BILL Free Thyroxine Index 2.5 1.2 - 4.9 [facility] ACCOUNT BILL 05/12/2008 11:3 9 AM CDT 05/12/2008 5:57 PM CDT Narrative Resulting Agency Comment [facility] [address] [facility] [id number] Zia Mckinney MD LAB - CHEMISTRY Jigar YOUNG [facility] ACCOUNT BILL * (ABNORMAL) CBC W AUTO DIFFERENTIAL (05/12/2008 11:39 AM CDT) WBC 4.3 4.0 - 10.5 x10E3/uL [facility] ACCOUNT BILL RBC 4.40 3.80 - 5.10 x10E6/uL [facility] ACCOUNT BILL Hemoglobin 13.3 11.5 - 15.0 g/dL [facility] ACCOUNT BILL Hematocrit 39.8 34.0 - 44.0 % [facility] ACCOUNT BILL MCV 91 80 - 98 fL [facility] ACCOUNT BILL MCH 30.2 27.0 - 34.0 pg [facility] ACCOUNT BILL MCHC 33.4 32.0 - 36.0 g/dL [facility] ACCOUNT BILL RDW 15.4(H) 11.7 - 15.0 % [facility] ACCOUNT BILL Platelet Count 186 140 - 415 x10E3/uL [facility] ACCOUNT BILL Granulocytes % 60 40 - 74 % [facility] ACCOUNT BILL Lymphocytes % 29 14 - 46 % [facility] ACCOUNT BILL Monocytes % 6 4 - 13 % [facility] ACCOUNT BILL Eosinophils % 5 0 - 7 % [facility] ACCOUNT BILL Basophils % 0 0 - 3 % [facility] ACCOUNT BILL Granulocytes Absolute 2.6 1.8 - 7.8 x10E3/uL [facility] ACCOUNT BILL Lymphocytes Absolute 1.2 0.7 - 4.5 x10E3/uL [facility] ACCOUNT BILL Monocytes Absolute 0.3 0.1 - 1.0 x10E3/uL [facility] ACCOUNT BILL Eosinophils Absolute 0.2 0.0 - 0.4 x10E3/uL [facility] ACCOUNT BILL Basophils Absolute 0.0 0.0 - 0.2 x10E3/uL [facility] ACCOUNT BILL Comment Hematology NOT AVAIL. [facility] ACCOUNT BILL 05/12/2008 11:3 9 AM CDT 05/12/2008 5:57 PM CDT Narrative [facility] ACCOUNT BILL - 05/13/2008 7:21 AM CDT Additional Result Information HEMATOLOGY COMMENTS: BLOOD,URINE ([facility]): RESULT NOT AVAILABLE Resulting Agency Comment [facility] [address] [phone] Zia Mckinney MD LAB - HEMATOLOGY ORDERABLES [facility] ACCOUNT BILL * COMPREHENSIVE METABOLIC PANEL (05/12/2008 11:39 AM CDT) Glucose 89 65 - 99 mg/dL [facility] ACCOUNT BILL BUN 15 5 - 26 mg/dL [facility] ACCOUNT BILL Creatinine 0.59 0.57 - 1.00 mg/dL [facility] ACCOUNT BILL eGFR by MDRD >59 >59 mL/min/1.7 3 [facility] ACCOUNT BILL eGFR by MDRD >59 >59 mL/min/1.7 3 [facility] ACCOUNT BILL Comment: Note: Persistent reduction for 3 months or more in an eGFR <60 mL/min/1.73 m2 defines CKD. Patients with eGFR values >/=60 mL/min/1.73 m2 may also have CKD if evidence of persistent proteinuria is present. Additional information may be found at [email or web address]. BUN/Creatinine Ratio 25 8 - 27 [facility] ACCOUNT BILL Sodium 142 135 - 145 mmol/L [facility] ACCOUNT BILL Potassium 4.6 3.5 - 5.2 mmol/L [facility] ACCOUNT BILL Chloride 105 97 - 108 mmol/L [facility] ACCOUNT BILL CO2 25 20 - 32 mmol/L [facility] ACCOUNT BILL Calcium 9.3 8.5 - 10.6 mg/dL [facility] ACCOUNT BILL Protein Total 6.4 6.0 - 8.5 g/dL [facility] ACCOUNT BILL Albumin 4.1 3.5 - 5.5 g/dL [facility] ACCOUNT BILL Globulin Total 2.3 1.5 - 4.5 g/dL [facility] ACCOUNT BILL Albumin/Globulin Ratio 1.8 1.1 - 2.5 [facility] ACCOUNT BILL Bilirubin Total 0.4 0.1 - 1.2 mg/dL [facility] ACCOUNT BILL Alkaline Phosphatase 75 25 - 150 IU/L [facility] ACCOUNT BILL AST 23 0 - 40 IU/L [facility] ACCOUNT BILL ALT 22 0 - 40 IU/L [facility] ACCOUNT BILL 05/12/2008 11:3 9 AM CDT 05/12/2008 5:57 PM CDT Narrative Resulting Agency Comment [facility] [address] [phone] Zia Mckinney MD LAB - CHEMISTRY O RDERABLES [facility] ACCOUNT BILL * PAP SMEAR LB RFLX HPV ASCU (PO REF LAB) (05/05/2008 10:54 AM MINI BAR ATTENDANT) [facility] ACCOUNT BILL Diagnosis [facility] ACCOUNT BILL Comment:NEGATIVE FOR INTRAEP ITHELIAL LESION AND MALIGNANCY. Specimen Adequacy [facility] ACCOUNT BILL Comment:Satisfactory for rayna luation. No endocervical component is identified. [facility] ACCOUNT BILL Clinician Provided ICD9 [facility] ACCOUNT BILL Comment:V72.31 ; Routine educational speech language clinician ecological examination Performed by [facility] ACCOUNT BILL Comment:Dirk Goddard totechnologist (ASCP) QC Reviewed by [facility] ACCOUNT BILL Comment:Milagros Griffin Hydrator ([facility]) Comment . [facility] ACCOUNT BILL Note [facility] ACCOUNT BILL Comment: The Pap smear is a screening test designed to aid in the detection of premalignant and malignant conditions of the uterine cervix. It is not a diagnostic procedure and should not be used as the sole means of detecting cervical cancer. Both false-positive and false-negative reports do occur. . Reflex [facility] ACCOUNT BILL Comment: The HPV DNA reflex criteria were not met with this specimen result therefore, no HPV testing was performed. . MICROSCOPIC CYTOLOGIC EXAMINATION OF SMEAR OF SPECIMEN FROM FEMALE GENITAL TRACT PREPARED USING PAPANICOLAOU TECHNIQUE / Unknown 05/05/2008 10:54 AM MINI BAR ATTENDANT 05/06/2008 1:38 AM MINI BAR ATTENDANT Narrative [facility] ACCOUNT BILL - 05/09/2008 8:08 PM MINI BAR ATTENDANT No. of containers..01 CYTYC Thin Prep Vial Resulting Agency Comment [facility] [address] [phone] Niranjan Aleman MD LAB - PATHOLOGY/CYTO LOGY ORDERABLES [facility] ACCOUNT BILL Care Teams Senior Php Web Developer Relationship Specialty Start Date End Date Davy Henriquez MD [address] [phone] PCP - General Family Medicine 02/12/24
== END 2024-05-20 14:23 | disposition home or self-care (01) ==
PROVIDERS: PCP Family Medicine; Visit Provider Podiatrist Foot & Ankle Surgery
DX: R03.0 Elevated blood-pressure reading, without diagnosis of hypertension (principal)
CPT/HCPCS: 93005

== ENCOUNTER 2024-09-17 01:15 | Day surgery (SDC) | payer MEDICARE, SELFPAY ==
[2024-08-29 14:16] VITALS: BMI 25.7
--- OUTSIDE RECORDS SUMMARY | 2024-09-17 01:18 | XMS_ITS | Clinical Summary ---
Author Organization [facility] [place] Address [address] [place] [address] Phone Care Team Providers Care Electrician Third Name Role Phone Unavailable Primary Care Provider Unavailabl e Encounters Date Type Department Care Team Description 08/20/2024 External Device Data [facility] Provider, Abstract 07/25/2024 External Device Data [facility] Provider, Abstract 07/24/2024 External Device Data [facility] Provider, Abstract 07/24/2024 External Device Data [facility] Provider, Abstract from Last 3 Months Social History Tobacco Use Types Packs/Day Years Used Date Smoking Tobacco: Never Assessed Comments Unknown Sex and Gender Information Value Date Recorded Sex Assigned at Not on file Legal Sex 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 ASSEMBLER Gender Identity Not on file Sexual Orientation Not on file Plan of Treatment Health Maintenance Due Date Last Done Comments COLORECTAL SCREENING 1998 Colorectal Cancer Screening 1998 FIT-DNA Q 3 years 1998 FIT/FOBT Q 1 year 1998 Flex Sig/CT Colonography Q 5 years 1998 PNEUMOCOCCAL VACCINE 50+ YEA RS (2 of 2 - PPSV23) 12/11/2019 12/10/2018 INFLUENZA VACCINE (#1) 2024 2, 12/09/2019, 12/10/2018, Additional history exists BREAST CANCER SCREENING 03/18/2025 03/18/19 25, 03/13/2023, 03/10/2022, Additional history exists RSV VACCINE (60+ or ) (1 - 1-dose 75+ series) 01/28/2028 OSTEOPOROSIS SCREENING 03/20/2028 4, 03/20/2023, 10/25/2016 DTAP/TDAP/TD VACCINES (4 - T d or Tdap) 05/09/2032 05/09/2022, 10/28/2015, 10/27/2015 ZOSTER VACCINE Completed 04/15/2019, 11/0 09/2018, 06/15/2014, Additional history exists Procedures Procedure Name Priority Date/Time Associated Diagnosis Comments MAMMO 3D ABHIJEET SCREEN BILAT W OR WO CAD Routine 03/18/2024 1:25 PM HAIRSPRING ASSEMBLER Encounter for screening mammogram for malignant neoplasm of breast from Last 3 Months or Most Recently Relevant to Health Maintenance Results * MAMMO 3D ABHIJEET SCREEN BILAT W OR WO CAD (03/18/2024 1:25 PM HAIRSPRING ASSEMBLER) Anatomical Region Laterality Modality Breast Bilateral Mammography 03/18/2024 1:25 PM HAIRSPRING ASSEMBLER Narrative 03/18/2024 1:33 PM HAIRSPRING ASSEMBLER EXAM: MAMMO 3D ABHIJEET SCREEN BILAT W [...] Final Resul t from Last 3 Months or Most Recently Relevant to Health Maintenance Insurance MEDICARE PART A AND B GENERIC PAYOR
--- OUTSIDE RECORDS SUMMARY | 2024-09-17 01:18 | XMS_ITS | Referral Summary ---
Author Organization [facility] [place] [address] Address [address] [place] [phone] Care Team Providers Care Air Operations Manager Name Role Phone Davy Henriquez MD Primary Care Provider Allergies No known active allergies Medications vitamins A,C,X-okum-btlemr (OCUVITE) 7,160 unit- 113 mg-100 unit tablet [...] on file Legal Sex Female 8:02 PM SOLAR PANEL TECHNICIAN Gender Identity Not on file Sexual Orientation Not on file Last Filed Vital Signs Vital Sign Reading Time Taken Comments Blood Pressure 140/96 03/04/2024 1:58 PM SOLAR PANEL TECHNICIAN Pulse 78 03/04/2024 12:59 PM SOLAR PANEL TECHNICIAN Temperature 36.4 C (97.6 F) 03/04/2024 12:59 PM SOLAR PANEL TECHNICIAN Respiratory Rate 18 03/15/2023 8:50 AM SOLAR PANEL TECHNICIAN Oxygen Saturation 98% 03/04/2024 12:59 PM SOLAR PANEL TECHNICIAN Inhaled Oxygen Concentration - - Weight 72.2 kg (159 lb 3.2 oz) 03/04/2024 12:59 PM SOLAR PANEL TECHNICIAN Height 162.6 cm (5' 4) 03/04/2024 12:59 PM SOLAR PANEL TECHNICIAN Body Mass Index 27.33 03/04/2024 12:59 PM SOLAR PANEL TECHNICIAN Plan of Treatment Not on file Procedures Procedure Name Priority Date/Time Associated Diagnosis Comments DEXA AXIAL SKELETON BONE DENSITY 1 OR MORE SITES Schedule Routine, Read Routine (OP Routine) 03/20/2023 Post-menopause SCREENING MAMMOGRAM BILATERAL W GEREMIAS Schedule Routine, Read Routine (OP Routine) 03/10/2022 from Last 3 Months or Most Recently Relevant to Health Maintenance Results * Dexa Axial Skeleton Bone Density 1 or 2 Site (03/20/2023) Anatomical Region Laterality Modality Body N/A Radiographic Zenaida ging Davy Henriquez MD IMG DXA PROCEDURES Final Resu lt * Screening Mammogram Bilateral W Geremias (03/10/2022) Anatomical Region Laterality Modality Breast Bilateral Mammography 03/10/2022 Historical Provider IMG MAMMO PROCEDURES Keisha l Result from Last 3 Months or Most Recently Relevant to Health Maintenance Insurance MEDICARE [employer] MEDICARE [employer] Care Teams Air Operations Manager Relationship Specialty Start Date End Date Davy Henriquez MD PCP - General Family Medicine 01/26/21
--- OUTSIDE RECORDS SUMMARY | 2024-09-17 01:18 | XMS_ITS | Clinical Summary ---
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
--- OUTSIDE RECORDS SUMMARY | 2024-09-17 01:18 | XMS_ITS | Clinical Summary ---
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 Gender Identity Not on file Sexual Orientation Not on file Obstetrics History Last Filed Vital Signs Vital Sign Reading Time Taken Comments Blood Pressure 140/96 03/04/2024 1:58 PM ARTILLERY SPECIALIST Pulse 78 03/04/2024 12:59 PM ARTILLERY SPECIALIST Temperature 36.4 C (97.6 F) 03/04/2024 12:59 PM ARTILLERY SPECIALIST Respiratory Rate 18 03/15/2023 8:50 AM ARTILLERY SPECIALIST Oxygen Saturation 98% 03/04/2024 12:59 PM ARTILLERY SPECIALIST Inhaled Oxygen Concentration - - Weight 72.2 kg (159 lb 3.2 oz) 03/04/2024 12:59 PM ARTILLERY SPECIALIST Height 162.6 cm (5' 4) 03/04/2024 12:59 PM ARTILLERY SPECIALIST Body Mass Index 27.33 03/04/2024 12:59 PM ARTILLERY SPECIALIST Plan of Treatment Health Maintenance Due Date Last Done Comments Colon Cancer Screening-Colonoscopy 1955 Hepatitis C Screening 1953 Hepatitis B Screening 1971 Pneumococcal vaccine 65+ (2 of 2 - PPSV23) 12/11/2019 12/10/2018 Covid-19 Vaccine ( - 2023-2 5 season) 2023 02/20/2021, 06/02/2020, 05/12/2020 Breast Cancer Screening-Mammogram 03/13/2024 03/13/2023, 03/13/2023, 03/10/2022, Additional history exists Influenza Vaccine (Season Ended) 2024 02/17/2022, 01/14/2021, 12/09/2019, Additional history exists Depression Screening 03/04/2025 03/04/2024, 03/02/2023, 02/17/2022, Additional history exists Fall Risk Assessment 03/04/2025 03/04/2024, 03/02/2023, 02/17/2022, Additional history exists Well Visit 65+ 03/04/2025 03/04/2024, 02/04, 02/17/2022, Additional history exists Osteoporosis Screening-Bone Density Scan 03/20/2025 03/20/2023 DTaP/Tdap/Td Vaccine (3 - Td or Tdap) 05/09/2032 05/09/2022, 10/27/2015 Zoster Vaccine Completed 04/15/2019, 09/2018, 06/15/2014, Additional history exists Procedures Procedure [...] Breast Bilateral Mammography 03/10/2022 Historical Provider MD ROBERTS MAMMO PROCEDURES Keisha l Result from Last 3 Months or Most Recently Relevant to Health Maintenance Insurance MEDICARE [employer]ICARE [employer] Care Teams Home Care And Home Health Aides Teacher Relationship Specialty Start Date End Date Davy Henriquez MD PCP - General Family Medicine 01/26/21
--- OUTSIDE RECORDS SUMMARY | 2024-09-17 01:18 | XMS_ITS | Clinical Summary ---
Author Organization [facility] [employer] Address [address] [facility] [place] [address] Care Team Providers Care Chief Learning Officer Name Role Phone Davy Henriquez MD Primary Care Provider [phone] Source Comments [facility],non-owned Affiliates and Associated Physician Practices is amultiple site organization consisting of ambulatory clinics and hospital sitesin [place], [place], [place] and [place]. This disclosure is being madepursuant to the Care Everywhere program and may not contain all information available regarding this patient. Last updated 17.[facility] Allergies No known active allergies Medications * Be aware that medications may not be up to date on this document. Alwaysverify current medications with the patient. Multiple Vitamins-Minera ls (EYE VITAMINS) CAPS Take 1 (one) capsule [...] Negative Date:05/27/08 Pap Smear: Date:05/05/08 Mammogram: Date:05/05/08 Encounters Date Type Department Care Team Description 07/18/2024 Patient Outreach [facility] - Care Coordination [address] [place] [phone] Shirley Gamble MA Outreach Preventive Care from Last 3 Months Immunizations Immunization Administration Dates Next Due INFLUENZA VACCINE 01/14/2021 [...] X2 Brother 2 Alive Brother 3 Father ME Mother Colon Cancer Sister 1 Alive X2 Sister 2 Alive Social History Tobacco Use Types Packs/Day Years Used Date Smoking Tobacco: Never Smokeless Tobacco: Never Tobacco Cessation:Counseling Given: Yes Alcohol Use Standard Drinks/Week Comments No 0 (1 standard drink = 0.6 oz pur e alcohol) PHQ-2 Answer Date Recorded Patient Health Questionnaire-2 Score 0 01/31/2023 Comments No Sex and Gender Information Value Date Recorded Sex Assigned at Not on file 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 Gender Identity Not on file Sexual Orientation Not on file 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 Not on file Not on file Not on file Last Filed Vital Signs Vital Sign Reading Time Taken Comments Blood Pressure 130/82 02/12/2024 1:05 PM ORGANIC CHEMISTRY TEACHER Pulse 82 12/09/2019 10:46 AM CDT Temperature 35.9 C (96.7 F) 12/09/2019 10:46 AM CDT Respiratory Rate 18 12/09/2019 10:46 AM CDT Oxygen Saturation 99% 12/09/2019 10:46 AM CDT Inhaled Oxygen Concentration - - Weight 75.5 kg (166 lb 6.4 oz) 02/12/2024 1:05 P M ORGANIC CHEMISTRY TEACHER Height 160 cm (5' 3) 02/12/2024 1:05 PM ORGANIC CHEMISTRY TEACHER Body Mass Index 29.48 02/12/2024 1:05 PM ORGANIC CHEMISTRY TEACHER Plan of Treatment Health Maintenance Due Date Last Done Comments COLOGUARD (AGES 45-75) - COLON CA SCREENING [address] COLONOGRAPHY - COLON CA SCREENING 1955 FIT - COLON CA SCREENING 1955 FLEX SIG - COLON CA SCREENING 1955 PNEUMOCOCCAL VACCINE 50+ (2 of 2 - PCV20 or PCV21) 12/11/2019 12/10/2018 MEDICARE AWV 12 MONTHS 12/08/2020 12/09/2019, 12/09/2019 LIPID TESTING 10/23/2022 10/23/2017, 08/0 11/2015, 05/12/2008 COVID-19 VACCINE ( - season) 2023 06/02/2020, 05/12/2020 DEPRESSION SCREENING 03/06/2024 01/31/2023 INFLUENZA VACCINE (#1) 2024 , 12/09/2019, 12/10/2018 DTAP/TDAP/TD VACCINES (3 - Td or Tdap) 10/27/2025 10/28/2015, 10/27/2015 MAMMOGRAM 03/18/2026 03/18/2024, 03/06, 03/18/2024, Additional history exists Respiratory Syncytial Virus (RSV) Vaccine Pt: or over 60 yrs (1 - 1-dose 75+ series) 01/28/2028 COLONOSCOPY - COLON CA SCREENING 06/20/2028 06/20/2018 (Done Outside Per Report), 08/23/2009 Colorectal Cancer Screening 06/20/2028 HEPATITIS C SCREENING Completed 10/13/2015 ZOSTER VACCINE Completed 04/15/2019, 09/2018, 06/15/2014, Additional history exists BONE DENSITY TESTING Completed 03/20/2023, 10/26/19 HEPATITIS B VACCINE Aged Out No longe [...] Narrative 03/18/2024 Ordered by an unspecified provider. us Scanned Document SCANNING ONLY Final Result * LIPID PROFILE (10/23/2017 10:00 AM CDT) [...] AM CDT 10/23/2017 Narrative Resulting Agency Comment [facility] [place] [address] [place] [phone] us Janes Solis MD LAB - CHEMISTRY ORDERABLES Keisha l Result Performing Organization Address City/[facility] Phone Number [facility] ACCOUNT BILL [address] [place] [address] * DEXA BONE DENSITY 2 SITES (10/25/2016) Anatomical Region Laterality Modality Other us Aguila Leyva SLAB GRINDER-GRAIN GRADER DEXA ORDERABLES Final Res ult * HEPATITIS C ANTIBODY (10/13/2015 12:36 PM CDT) Hepatitis C Antibody Non Reactive Non Reactive [facility] ACCOUNT BILL Comment: Non Reactive - Antibodies to Hepatitis C virus (HCV) were no t detected, result does not exclude early acute HCV infection. Blood specimen (specimen) BLOOD SPECIMEN / Unknown 10/13/2015 12:36 PM CDT 10/13/2015 3:16 PM CDT Narrative Resulting Agency Comment [facility] [address] [place] [phone] us Janes Solis MD LAB - CHEMISTRY ORDERABLES Keisha l Result Performing Organization Address [facility] Phone Number [facility] ACCOUNT BILL [address] [place] [address] from Last 3 Months or Most Recently Relevant to Health Maintenance Insurance MEDICARE MEDICARE [employer] Care Teams Chief Learning Officer Relationship Specialty Start Date End Date Davy Henriquez MD [address] [place] [phone] PCP - General Family Medicine 02/12/24
--- OUTSIDE RECORDS SUMMARY | 2024-09-17 01:18 | XMS_ITS | Encounter Summary ---
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
[2024-09-17 11:32] VITALS: BP 152/80; PULSE 77; RESP 16; TEMP 36.8; O2SAT 99; BMI 28.0
[2024-09-17] MEDS: LACTATED RINGERS 1,000 ML 150 ML IV CONT (11:51)
--- NOTE | 2024-09-17 11:52 | P.PNAN_ITS ---
Anes - Initial Pre Proc Eval Procedure: Operation Date: 09/17/24 13:00 Proposed Procedures p Screening Colonoscopy - Moy Rincon MD Date/Time: 09/17/24 11:52 Surgeon: Moy Rincon MD Pre Op Diagnosis: neoplasm screening Patient Data Age: 69 Gender: F Height: 1.6 m Weight: 71.8 kg Last Vital Signs Temp 98.2 F 09/17/24 11:32 Pulse 77 09/17/24 11:32 Resp 16 09/17/24 11:32 BP 152/80 H 09/17/24 11:32 Pulse Ox 99 09/17/24 11:32 O2 Del Method Room Air 09/17/24 11:32 Allergies Allergy/AdvReac Type Severity Reaction Status Date / Time No Known Allergies Allergy Verified 09/17/24 11:39 Home Medications ?Medication ?Instructions ?Recorded ?Confirmed ?Type calcium 600 mg (as carbonate)-vit 1 tablet PO DAILY 10/10/22 09/17/24 History D3 20 mcg (800 unit) chewable tablet (Caltrate plus D) vit C 250 mg-E 90 mg-zinc 40 1 cap PO DAILY 08/23/23 09/17/24 History mg-copper 2 mg-lutein 5 mg-zeaxan capsule Patient hx anesthesia problems: none Family hx anesthesia problems: none Results Review: All pre-operative results and documents have been reviewed as part of the pre-operative evaluation. [facility] Past Medical History Medical History No pertinent past medical history Surgical History Surgical History No pertinent past surgical history Family History Family History Father Hypertension Mother Cancer Social History Social History Smoking status: Never smoker Second hand tobacco smoke exposure: No Alcohol intake: current Alcohol use details: less than one a week Substance use: never Substance use type: does not use Lack of Transportation: No Lack of Food: Never True Current Housing: I Have Housing Concerned About Future Housing: No Difficulty Paying Gas/Electric Bills: No Difficulty Paying for Meds: No Currently Unemployed: No Education: Trade/Vocational Certificate Difficulty w/ Childcare or Family Care: No Living arrangements: alone Spiritual care concerns: No Anes - Eval Final PreProcedure Day of Procedure 09/17/24 11:52 Patient weight: overweight Lungs: normal air movement Airway: Mallampati scale class II Neurological: alert and oriented Last oral intake: >/= 8 hours ASA classification: I Emergent: no Anesthetic plan: proceed Anesthesia type and monitoring: general GIVS and standard monitoring Results Review: All pre-operative results and documents have been reviewed as part of the pre- operative evaluation. Healthy, pt walks outdoors seveal times/week, no cp or sob. Informed Consent: The patient's anesthetic plan and its attendant risks and benefits were discussed with the patient/family/POA. Questions were solicited and answers provided to the satisfaction of the patient/family/POA.
--- NOTE | 2024-09-17 13:18 | PM.IMHP ---
H&P: HPI History of Present Illness Date/Time: 09/17/24 13:18 Chief Complaint: Family history of colon cancer Narrative: This patient has family history of colorectal cancer. apparently, her mother of colorectal cancer. Her last colonoscopy was 5 years ago. Review of Systems Review of Systems: All systems reviewed & are unremarkable except as noted in HPI and below PMFSH Past Medical History Medical History No pertinent past medical history Surgical History Surgical History No pertinent past surgical history Family History Family History Father Hypertension Mother Cancer Social History Social History Smoking status: Never smoker Second hand tobacco smoke exposure: No Alcohol intake: current Alcohol use details: less than one a week Substance use: never Substance use type: does not use Lack of Transportation: No Lack of Food: Never True Current Housing: I Have Housing Concerned About Future Housing: No Difficulty Paying Gas/Electric Bills: No Difficulty Paying for Meds: No Currently Unemployed: No Education: Trade/Vocational Certificate Difficulty w/ Childcare or Family Care: No Living arrangements: alone Spiritual care concerns: No Meds Home Medications and Allergies Home Medications ?Medication ?Instructions ?Recorded ?Confirmed ?Type calcium 600 mg (as carbonate)-vit 1 tablet PO DAILY 10/10/22 09/17/24 History D3 20 mcg (800 unit) chewable tablet (Caltrate plus D) vit C 250 mg-E 90 mg-zinc 40 1 cap PO DAILY 08/23/23 09/17/24 History mg-copper 2 mg-lutein 5 mg-zeaxan capsule Allergies Allergy/AdvReac Type Severity Reaction Status Date / Time No Known Allergies Allergy Verified 09/17/24 11:39 Vital Signs Vital Signs - 24 hr 09/17/24 11:32 Temperature 98.2 F Pulse Rate 77 Respiratory Rate 16 Blood Pressure 152/80 H Pulse Oximetry 99 Oxygen Delivery Room Air Exam Const: General: cooperative and healthy appearing Resp: Effort & Inspection: normal respiratory effort and able to speak in complete sentences Auscultation: clear to auscultation bilaterally Cardio: Rate: regular rate Rhythm: regular rhythm GI: Inspection: normal to inspection GI Palp: No No hepatosplenomegaly present Auscultation: normal bowel sounds Rectal Exam: deferred Skin: General skin exam: normal color Psych: Appearance: grossly normal Mental Status: mental status grossly normal Assessment and Plan Assessment and plan (1) Family history of colon cancer: Code(s): Z80.0 - Family history of malignant neoplasm of digestive organs Status: Acute Assessment and Plan: The patient is deemed a good candidate for the procedure. Consent signed. Will proceed.
[2024-09-17 13:42] VITALS: BP 121/76; PULSE 75; RESP 24; O2SAT 99
[2024-09-17 13:52] VITALS: BP 136/87; PULSE 76; RESP 23; O2SAT 98
[2024-09-17 14:02] VITALS: BP 158/94; PULSE 80; RESP 20; O2SAT 98
== END 2024-09-17 14:13 | disposition home or self-care (01) ==
PROVIDERS: PCP Family Medicine; Referring Provider Internal Medicine Gastroenterology; Visit Provider Internal Medicine Gastroenterology
PROC: 0DJD8ZZ Inspection of Lower Intestinal Tract, Via Natural or Artificial Opening Endoscopic (ICD-10-PCS; CPT 45378; principal; 2024-09-17 13:00)
DX: Z12.11 Encounter for screening for malignant neoplasm of colon (principal); Z80.0 Family history of malignant neoplasm of digestive organs
CPT/HCPCS: G0105; J2003; J2704; J7120